=== PATIENT | female | born 1970 | race Caucasian/White ===

== ENCOUNTER 2016-11-14 07:44 | Day surgery (SDC) | payer OTHER ==
[~2016-11-14] VITALS: Ht 165.1 cm; Wt 63.7 kg
[2016-11-14] VITALS (17 sets, daily range): BP systolic 95–142; BP diastolic 46–96; PULSE 60–111; TEMP 36.5–36.7; O2SAT 95–100; Ht 165.1 cm; Wt 63.7 kg
[~2016-11-14 07:44] MED LIST: ALBUAER INH; BENZ1CAP90 PO; ESCI1TAB10 PO; ESTCR; LORA-741 PO; NAPR250T3 PO; PANT1INJ2; PSEU60TA80 PO; RANITAB6 PO; RBTDACL; SALM50AE2 INH; TIOTCAP INH
[2016-11-14] MEDS ORDERED: LEVALBUTEROL 1.25MG/3ML NEB INH ONE ×2 (07:45→11:45)
[2016-11-14] MEDS ORDERED: LIDOCAINE 4% INH SOLN 4 ML BTL ONE (07:45)
[2016-11-14] MEDS ORDERED: MIDAZOLAM HCL 5 MG/ML 1 ML VIAL IV ONE (07:45)
[2016-11-14] MEDS ORDERED: FENTANYL CITRATE INJ 50 MCG/1 ML 2 ML VIAL IV ONE (07:45)
[2016-11-14] MEDS ORDERED: LIDOCAINE HCL 2% LOCAL 50ML VIAL INFIL ONE (07:45)
[2016-11-14] MEDS ORDERED: PANT40TA PO (08:17)
[2016-11-14] MEDS ORDERED: PROP10TA7 PO (08:18)
[2016-11-14] MEDS ORDERED: ACET-1256 PO (08:18)
[2016-11-14] MEDS ORDERED: IBUP-1427 PO (08:18)
[2016-11-14] MEDS ORDERED: FLUT0.15 INH (08:19)
--- NOTE | 2016-11-14 09:22 | History & Physical Bridge Note ---
H&P Re-Evaluation Bridge Note: I have examined the patient, reviewed the History & Physical and in the interval since the performance of the History & Physical I have noted the following changes of clinical significance: No changes noted
--- NOTE | 2016-11-14 09:23 | Procedure Note ---
Pre-Mod Sedation Assessment General Date of Moderate Sedation: November 14, 2016. Vital Signs: Vital Signs Past 12 Hours Date Time Temp Pulse Resp B/P Pulse Ox O2 Delivery O2 Flow Rate FiO2 11/14/16 08:29 36.7 64 18 118/48 99 Room Air 11/14/16 08:12 36.7 64 18 118/48 99 Room Air Pre-Sedation Airway Assessment Oral Cavity: WNL Short Thick Neck: No Hx of Sleep Apnea: No Smoking Status: Current Every Day Smoker Mallampati Classification: Class I ASA Classification: Class I Procedure Planning Contraindications-for Mod Sed: None Yes Notes The planned sedation has been discussed with the patient and consent obtained. I have identified the patient, determined the appropriateness of sedation and have assessed the patient immediately prior to the procedure. All medicine(s) and interventions are by my order.
[2016-11-14] MEDS ORDERED: NURSING VERBAL MED ORDER ONE ×3 (10:45→11:45)
--- NOTE | 2016-11-14 11:44 | OPERATIVE REPORT ---
DATE OF OPERATION: 11/14/2016 PROCEDURE: Fiberoptic bronchoscopy with bronchoalveolar lavage. INDICATIONS: Chronic cough refractory to aggressive outpatient therapy. ANESTHESIA PREOPERATIVELY: None. ANESTHESIA DURING PROCEDURE: 50 mcg IV fentanyl, 5 mg IV Versed, 20 mL 2% Xylocaine spray above and below the cords, 4% viscous Xylocaine intranasally. PROCEDURE: Fiberoptic bronchoscope was inserted into the left naris with minimal difficulty and passed to the level of the true vocal cords. The cords appeared to approximate normally with phonation without evidence for lesions or paralysis. The area was anesthetized with 2% Xylocaine spray and the scope was then introduced in the trachea and right and left tracheobronchial tree. The ramirez was sharp. The right main stem bronchus was explored and no endobronchial lesion was seen. A moderate amount of mucoviscous secretion was lavaged from the right mainstem bronchus and all lobar segments until clear. The right upper lobe, the apical posterior and anterior segments, bronchus intermedius, right middle lobe and the medial and lateral segments and all basilar segments of right lower lobe were found to be free of endobronchial lesions. Each lobar segment was copiously lavaged with normosol and the aspirate sent for appropriate studies. Changes of chronic bronchitis were noted with bronchial crypts and clefts seen throughout the right tracheobronchial tree. Left tracheobronchial tree was explored and no endobronchial lesion was seen. Left upper lobe, the apical-posterior and anterior segments, lingular subdivision, left lower lobe and all respective basilar segments were found to be free of endobronchial lesions. Each lobar segment was copiously lavaged with normosol and the aspirate sent for appropriate studies. No brushings or biopsies were deemed necessary. The scope was withdrawn and the patient did experience some coughing paroxysms and was given a nebulizer treatment with Xopenex 1.25 mg then transferred to the medical treatment unit hemodynamically stable with no signs of respiratory compromise. Will await microbiological and cytologic examination of the bronchial washings. I attest to the content of the Intraoperative Record and any orders documented therein. Any exceptio ns are noted below.
--- NOTE | 2016-11-14 13:10 | Discharge Instructions ---
Discharge Instructions Date of Service November 14, 2016. Admission Reason for Admission: Copd; Cough; Pulmonary Nodule Discharge Discharge Diagnosis / Problem: Cough Discharge Goals Goal(s): Diagnostic testing, Therapeutic intervention Activity Recommendations Activity Limitations: per Instructions/Follow-up section Lifting Limitations: none Exercise/Sports Limitations: rest today, gradually increase as tolerated Shower/Bathe: no limitations . Current Hospital Diet Patient's current hospital diet: Discharge Diet Recommended Diet: Regular Diet Pending Studies Studies pending at discharge: yes List of pending studies: Cultures and cytology - will be reviewed on follow-up appointment Medical Emergencies . Who to Call and When: Medical Emergencies: If at any time you feel your situation is an emergency, please call 911 immediately. . Non-Emergent Contact Non-Emergency issues call your: Primary Care Provider, Hatchery Attendant Call Non-Emergent contact if: you have a fever, you have any medication questions . . "Provider Documentation" section prepared by Evy Viveros. . VTE Core Measure Inpt VTE Proph given/why not?: Contraindicated
[2016-11-20 12:23] LABS: HERPES SIMPLEX CULT SOURCE OTHER-R&L TRACH TREE; HERPES SIMPLEX VIRUS CULT NOT ISOLATED (NOT ISOLATED)
== END 2016-11-14 13:32 | disposition home or self-care (01) ==
LOC: C.ACU 07:44
PROVIDERS: ATTEND Internal Medicine Pulmonary Disease
DX: J44.9 Chronic obstructive pulmonary disease, unspecified (principal); Z72.0 Tobacco use; Z79.899 Other long term (current) drug therapy

== ENCOUNTER 2021-01-15 15:59 | Observation (INO) ==
[2021-01-15] MEDS ORDERED: ALBUT/IPRATROP 3MG/0.5MG NEB 3 ML VIAL INH STA (19:44)
[2021-01-15] MEDS ORDERED: methylPREDNISolone 125 MG/2 ML VIAL IV STA (19:44)
--- NOTE | 2021-01-15 19:57 | XRay Report ---
XR chest 1V portable HISTORY: 50 years-old Female Dyspnea acute shortness of breath COMPARISON: Chest radiograph 7 09/14/2020, chest CT 05/25/2020 TECHNIQUE: Portable AP view of the chest FINDINGS: Cardiac mediastinal and hilar silhouettes are within normal limits. No pneumothorax, pleural effusion , airspace consolidation or overt pulmonary edema. Spinal stimulator leads overlying the mid-thoracic spine. Bones of the chest appear grossly intact. IMPRESSION: No acute process. ACT 112: Negative or not required by law. The above report was generated using voice recognition software. It may contain grammatical, syntax o r spelling errors. Electronically signed by: Mauro Farmer M.D. 01/15/2021 7:56 PM
[2021-01-15 20:08] LABS: Basophils # (auto) 0.02 K/uL (0-0.2); Basophils % (auto) 0.3 %; Eosinophils % (auto) 2.6 %; Hematocrit (blood only) 41.4 % (37-47); Hemoglobin 14.1 g/dL (12.0-16.0); Immature Granulocytes # (auto) 0.01 K/uL (0.00-0.02); Immature Granulocytes % (auto) 0.1 %; Lymphocytes % (auto) 43.6 %; Mean Corpuscular Hemoglobin 32.1 pg (25-34); Mean Corpuscular Hgb Conc 34.1 g/dL (32-36); Mean Corpuscular Volume 94.3 fL (80-100); Mean Platelet Volume 9.7 fL (7.4-10.4); Monocytes # (auto) 0.52 K/uL (0.11-0.59); Monocytes % (auto) 6.7 %; Neutrophils # (auto) 3.64 K/uL (1.4-6.5); Neutrophils % (auto) 46.7 %; Platelet Count 307 K/uL (130-400); RDW Coefficient of Variation 13.3 % (11.5-14.5); RDW Standard Deviation 46.2 fL (36.4-46.3); Red Blood Count 4.39 M/uL (4.2-5.4); White Blood Count 7.79 K/uL (4.8-10.8)
--- NOTE | 2021-01-15 20:12 | Emergency Department Note ---
Impression & Plan Acute exacerbation of chronic obstructive pulmonary disease (COPD), Acute bronchitis ED Provider Note NAME: VITALY BREWER AGE: 50 SEX: F : 1970 ARRIVES VIA: Walk-In INFORMANT: Patient, ED PROVIDER(S): Sebastian Trejo DO CHIEF COMPLAINT: Shortness of breath HPI: The patient is a 50-year-old female who presented to the emergency department at the request of her primary tip bander for an evaluation of difficulty breathing as well as possible admission. The patient's been noticing cough and difficulty breathing. She was seen at an urgent care center as well as [place] emergency department. She was placed on antibiotics twice and is on her second round of antibiotics. She was also started on steroids. She was seen by her pulmonary physician today and was sent to the emergency department because of ongoing symptoms as well as possible admission. The patient states she has been using her nebulizer machine and last used it this morning. She has been tested for COVID-19 and it was negative. She denies having any lower extremity swelling or chest pain. She denies having any abdominal pain nausea or vomiting. The patient does continue to use tobacco products. ROS: See above HPI for pertinent positives & negatives. A total of 10 systems reviewed and were otherwise negative. PAST MEDICAL HISTORY: See Below PAST SURGICAL HISTORY: See Below FAMILY HISTORY: See Below SOCIAL HISTORY: See Below HOME MEDICATIONS: See Below ALLERGIES: See Below VITALS: See Below PHYSICAL EXAMINATION: GENERAL: Patient is awake alert in no acute distress patient is resting comfortably and showing no signs of anxiety EYES: The conjunctivae are clear. The pupils are round and reactive. EARS, NOSE, MOUTH AND THROAT: The nose is without any evidence of any deformity. NECK: The neck is nontender and supple. RESPIRATORY: Diminished breath sounds are noted throughout. There is no convers ational dyspnea or tachypnea. CARDIOVASCULAR: Regular rate and rhythm noted there no murmurs rubs or gallops normal S1 normal S2. GASTROINTESTINAL: The abdomen is soft. Abdomen is nontender. MUSCULOSKELETAL/EXTREMITIES: There is no evidence of gross deformity full range of motion is noted in the hips and shoulders. SKIN: There is no obvious evidence of any rash. There is no calf tenderness. NEUROLOGIC: Patient is awake alert and oriented x3. MEDICAL DECISION MAKING: The patient is a 50-year-old female who presented to the emergency department for an evaluation of difficulty breathing. The patient does have a history of COPD but she has been treated with 2 outpatient rounds of antibiotic and steroid. She was having worsening symptoms throughout the day. She called her primary care physician who got in contact with her primary pulmonology group. She was advised to come the emergency department for further evaluation. The patient was not hypoxic or tachycardic but given her ongoing symptoms CT of the chest was obtained to rule out venous pulmonary thromboembolic disease. The patient did not have a fever. She was treated with DuoNeb therapy as well as IV steroids. She was also given IV antibiotics. I discussed her condition with her primary tip bander on-call. At this time given her symptoms and her failure of outpatient therapy he does recommend we discussed the case with the hospitalist group for possible inpatient management and further evaluation. The [facility] hospitalist was notified about the patient. Triage Nursing notes reviewed. Prior medical records reviewed Vital Signs: reviewed and remarkable for no significant abnormalities Differential diagnosis: Reactive airway disease, pneumonia, pneumothorax, COPD, CHF, infections, cardiac ischemia, pulmonary embolism, musculoskeletal, gastrointestinal, as well as other pathologies. ER treatment provided: See below Diagnostics interpreted by me: ECG: EKG was obtained in the emergency department. My interpretation is normal sinus rhythm at 73 bpm. There is no ectopy. There was no acute ST segment abnormalities noted. Cardiac Monitoring: An order was placed for continuous cardiac monitoring. The monitor shows a rate of 78 bpm with sinus rhythm. Laboratory studies: As stated above and show below. Imaging studies: See below Consultation(s): 2170: I discussed this case with Dr. Logan who is on-call for pulmonology. He is concerned the patient has failed outpatient therapy twice now and recommends observation for inpatient management. He does recommend Zithromax. Dr. Whiteside was notified about the patient. He will evaluate the patient in the emergency department. Past Med/Surg History Medical History Cat scratch fever COPD (chronic obstructive pulmonary disease) Esophagitis GERD (gastroesophageal reflux disease) Lung nodule Surgical History History of cholecystectomy History of endometrial ablation History of lumbar fusion L5-S1 History of tubal ligation Social History Smoking Status: Current every day smoker Tobacco Type: Cigarettes Second Hand Exposure: No; Hx Alcohol Use: No Hx Substance Use: No Preferred Language: Tajik Communication Ability: Effective Sand Conditioner Machine Required: No Beliefs That Will Affect Care: None Current Living Situation: Family Feels Safe at Home: Yes Assistive Devices: Glasses Allergies Allergies Allergy/AdvReac Type Severity Reaction Status Date / Time Bactrim Allergy Mild RASH Verified 11/14/16 08:14 moxifloxacin [From Avelox] Allergy Mild Rash Verified 01/10/21 10:58 sulfamethoxazole Allergy Mild RASH Verified 01/10/21 10:58 trimethoprim Allergy Mild RASH Verified 01/10/21 10:58 doxycycline AdvReac nushea and Verified 01/10/21 10:58 vomiting Home Meds Home Medications Medication Instructions Recorded Confirmed clonazepam 0.5 mg tablet (Klonopin) 0.5 mg PO TID PRN 04/30/18 01/10/21 escitalopram oxalate 20 mg tablet 20 mg PO DAILY 04/30/18 01/10/21 (Lexapro) estradiol (Estrace) 2 g VAGINAL WK 04/30/18 01/10/21 ibuprofen 600 mg tablet 600 mg PO QID PRN 04/30/18 01/15/21 propranolol 10 mg tablet 10 mg PO DAILY 04/30/18 01/10/21 albuterol sulfate 90 mcg/actuation 2 puffs INHALATION Q4H PRN #1 gm 01/25/19 01/10/21 aerosol inhaler ondansetron HCl 4 mg tablet 4 mg PO Q8H PRN tab 01/25/19 01/15/21 aspirin 81 mg tablet,delayed 81 mg PO DAILY 11/22/19 01/10/21 release (Adult Aspirin Regimen) calcium carbonate 200 mg calcium 200 mg PO BID 11/22/19 01/10/21 (500 mg) chewable tablet cyanocobalamin (vitamin B-12) 1,000 mcg IM MONTHLY ml 04/25/20 01/10/21 1,000 mcg/mL injection solution budesonide 0.5 mg/2 mL suspension 0.5 mg INHALATION DAILY 10/03/20 01/10/21 for nebulization (Pulmicort) dexlansoprazole 60 mg 60 mg PO DAILY 10/03/20 01/10/21 capsule,biphase delayed release (Dexilant) simvastatin 10 mg tablet (Zocor) 10 mg PO DAILY 10/03/20 01/10/21 doxycycline hyclate 100 mg capsule 100 mg PO Q12 01/15/21 01/15/21 levalbuterol HCl 1.25 mg/3 mL 1.25 mg INH Q4H PRN 01/15/21 01/15/21 solution for nebulization (Xopenex) prednisone 10 mg tablet 10 mg PO UD 01/15/21 01/15/21 Previous Rx's Medication Instructions Recorded fluticasone propionate 50 1 spray INTRANASAL DAILY #18.2 ml 09/20/19 mcg/actuation nasal spray,suspension (Flonase Allergy Relief) benzonatate 100 mg capsule 100 mg PO BID PRN #60 cap 10/18/19 (Tessalon Perltasneem) mometasone-formoterol HFA 200 1 puffs INHALATION BID #13 gm 01/07/20 mcg-5 mcg/actuation aerosol inhaler chlorpheniramine maleate 4 mg 4 mg PO Q12H PRN #60 tab 05/23/20 tablet (Allergy (chlorpheniramine)) pseudoephedrine HCl 120 mg 120 mg PO Q12H #60 tab 05/23/20 tablet,extended release sodium chloride 7 % for 4 ml INHALATION BID #240 ml 10/03/20 nebulization amoxicillin 875 mg-potassium 1 tab PO BID #20 tab 01/09/21 clavulanate 125 mg tablet (Augmentin) fluconazole 100 mg tablet 100 mg PO DAILY #10 tab 01/09/21 (Diflucan) ipratropium bromide 0.02 % 2.5 ml INH Q4H PRN #150 ml 01/10/21 solution for inhalation Results & Data (ED) Vital Signs Vital Signs - 24 hr 01/15/21 16:35 01/15/21 19:38 01/15/21 20:00 Temperature 36.6 C Temperature Source Temporal Artery Scan Pulse Rate 84 89 73 Pulse Rate [Right Radial] Pulse Rate from SpO2 Sensor 83 78 Pulse Rhythm Regular Pulse Strength Normal Respiratory Rate 20 21 20 Respiratory Effort / Characteristics Non-Labored Spontaneous Respiratory Depth Normal Respiratory Pattern Regular Blood Pressure 125/77 116/86 Blood Pressure Mean 93 96 107 Pulse Oximetry 98 97 96 Oxygen Delivery Method Room Air Room Air Room Air Sepsis Recent Fever Within 48 Hours No Sepsis New/Unexplained Change in Mental Status No Sepsis Action Taken by Nursing No Action Required 01/15/21 20:09 01/15/21 20:27 01/15/21 20:30 Temperature Temperature Source Pulse Rate 75 Pulse Rate [Right Radial] 82 Pulse Rate from SpO2 Sensor 75 Pulse Rhythm Pulse Strength Respiratory Rate 18 14 Respiratory Effort / Characteristics Non-Labored Spontaneous Respiratory Depth Respiratory Pattern Blood Pressure 119/64 Blood Pressure Mean 82 Pulse Oximetry 98 94 97 Oxygen Delivery Method Room Air Room Air Room Air Sepsis Recent Fever Within 48 Hours Sepsis New/Unexplained Change in Mental Status Sepsis Action Taken by Nursing 01/15/21 21:00 01/15/21 22:00 01/15/21 22:30 Temperature Temperature Source Pulse Rate 74 73 76 Pulse Rate [Right Radial] Pulse Rate from SpO2 Sensor 74 75 77 Pulse Rhythm Pulse Strength Respiratory Rate 22 23 22 Respiratory Effort / Characteristics Respiratory Depth Respiratory Pattern Blood Pressure 131/80 118/71 Blood Pressure Mean 97 86 Pulse Oximetry 96 96 95 Oxygen Delivery Method Room Air Sepsis Recent Fever Within 48 Hours Sepsis New/Unexplained Change in Mental Status Sepsis Action Taken by [facility] Medications Current Medication List: was personally reviewed by me Laboratory Data Attestation: I reviewed the patient's lab results. Result diagrams: 01/15/21 19:50 01/15/21 19:50 Lab Results 01/15/21 01/15/21 01/15/21 Range/Units 19:50 19:50 20:27 WBC 7.79 (4.8-10.8) K/uL RBC 4.39 (4.2-5.4) M/uL Hgb 14.1 (12.0-16.0) g/dL Hct 41.4 (37-47) % MCV 94.3 (80-100) fL MCH 32.1 (25-34) pg MCHC 34.1 (32-36) g/dL RDW Std Deviation 46.2 (36.4-46.3) fL RDW Coeff of Shanika 13.3 (11.5-14.5) % Plt Count 307 (130-400) K/uL MPV 9.7 (7.4-10.4) fL Immature Gran % (Auto) 0.1 % Neut % (Auto) 46.7 % Lymph % (Auto) 43.6 % [place] % (Auto) 6.7 % Eos % (Auto) 2.6 % Baso % (Auto) 0.3 % Neut # (Auto) 3.64 (1.4-6.5) K/uL Lymph # (Auto) 3.40 (1.2-3.4) K/uL [place] # (Auto) 0.52 (0.11-0.59) K/uL Eos # (Auto) 0.20 (0-0.5) K/uL Baso # (Auto) 0.02 (0-0.2) K/uL Immature Gran # (Auto) 0.01 (0.00-0.02) K/uL VBG pH 7.43 H (7.36-7.41) VBG pCO2 44 (38-50) mmHg VBG pO2 29 mmHg VBG HCO3 29 mmol/L VBG O2 Saturation < 60.0 % VBG Base Excess 4.0 mEq/L Barometric Pressure 731.1 mm/Hg Sodium 139 (136-145) mmol/L Potassium 4.2 (3.5-5.1) mmol/L Chloride 106 (98-107) mmol/L Carbon Dioxide 28 (21-32) mmol/L Anion Gap 5.0 (3-11) BUN 9 (7-18) mg/dl Creatinine 0.77 (0.6-1.2) mg/dl Est Cr Clr Drug Dosing 76.9 ml/min Est GFR ( Amer) 102.9 ml/min Est GFR (Non-Af Amer) 88.8 ml/min BUN/Creatinine Ratio 12.0 (10-20) Glucose 86 (70-99) mg/dl Calcium 8.8 (8.5-10.1) mg/dl Magnesium 2.3 (1.8-2.4) mg/dl Total Bilirubin 0.3 (0.2-1) mg/dl AST 19 (15-37) U/L ALT 20 (12-78) U/L Alkaline Phosphatase 78 (45-117) U/L Troponin I < 0.015 (0-0.045) ng/ml Total Protein 7.6 (6.4-8.2) gm/dl Albumin 3.9 (3.4-5.0) gm/dl Globulin 3.7 (2.5-4.0) gm/dl Albumin/Globulin Ratio 1.1 (0.9-2) Specimen Hemolysis Urine Color Urine Appearance (Clear) Urine pH (4.5-7.5) Ur Specific [place] (1.000-1.030) Urine Protein (Negative) Urine Glucose (UA) (Negative) Urine Ketones (Negative) Urine Blood (Negative) Urine Nitrite (Negative) Urine Bilirubin (Negative) Urine Urobilinogen (Negative) Ur Leukocyte Esterase (Negative) 01/15/21 Range/Units 21:48 WBC (4.8-10.8) K/uL RBC (4.2-5.4) M/uL Hgb (12.0-16.0) g/dL Hct (37-47) % MCV (80-100) fL MCH (25-34) pg MCHC (32-36) g/dL RDW Std Deviation (36.4-46.3) fL RDW Coeff of Shanika (11.5-14.5) % Plt Count (130-400) K/uL MPV (7.4-10.4) fL Immature Gran % (Auto) % Neut % (Auto) % Lymph % (Auto) % [place] % (Auto) % Eos % (Auto) % Baso % (Auto) % Neut # (Auto) (1.4-6.5) K/uL Lymph # (Auto) (1.2-3.4) K/uL [place] # (Auto) (0.11-0.59) K/uL Eos # (Auto) (0-0.5) K/uL Baso # (Auto) (0-0.2) K/uL Immature Gran # (Auto) (0.00-0.02) K/uL VBG pH (7.36-7.41) VBG pCO2 (38-50) mmHg VBG pO2 mmHg VBG HCO3 mmol/L VBG O2 Saturation % VBG Base Excess mEq/L Barometric Pressure mm/Hg Sodium (136-145) mmol/L Potassium (3.5-5.1) mmol/L Chloride (98-107) mmol/L Carbon Dioxide (21-32) mmol/L Anion Gap (3-11) BUN (7-18) mg/dl Creatinine (0.6-1.2) mg/dl Est Cr Clr Drug Dosing ml/min Est GFR ( Amer) ml/min Est GFR (Non-Af Amer) ml/min BUN/Creatinine Ratio (10-20) Glucose (70-99) mg/dl Calcium (8.5-10.1) mg/dl Magnesium (1.8-2.4) mg/dl Total Bilirubin (0.2-1) mg/dl AST (15-37) U/L ALT (12-78) U/L Alkaline Phosphatase (45-117) U/L Troponin I (0-0.045) ng/ml Total Protein (6.4-8.2) gm/dl Albumin (3.4-5.0) gm/dl Globulin (2.5-4.0) gm/dl Albumin/Globulin Ratio (0.9-2) Specimen Hemolysis Urine Color Yellow Urine Appearance Clear (Clear) Urine pH 7.0 (4.5-7.5) Ur Specific [place] 1.022 (1.000-1.030) Urine Protein Negative (Negative) Urine Glucose (UA) Negative (Negative) Urine Ketones Negative (Negative) Urine Blood Negative (Negative) Urine Nitrite Negative (Negative) Urine Bilirubin Negative (Negative) Urine Urobilinogen Negative (Negative) Ur Leukocyte Esterase Negative (Negative) Administered Medications Discontinued Medications Albuterol (Albut/Ipratrop 3mg/0.5mg Neb 3 Ml Vial) 3 ml INH NOW STA Stop: 01/15/21 19:45 Last Admin: 01/15/21 20:09 Dose: 3 ml Documented by: [id number] Ioversol (Optiray 320 125ml) 121 ml IV ONCE ONE Stop: 01/15/21 21:24 Last Admin: 01/15/21 21:24 Dose: 121 ml Documented by: [id number] Methylprednisolone (Methylprednisolone 125 Mg/2 Ml Vial) 125 mg IV NOW STA Stop: 01/15/21 19:45 Last Admin: 01/15/21 20:13 Dose: 125 mg Documented by: [id number] Imaging Data Radiologist's Impression: Chest X-Ray 01/15/21 19:45 XR chest 1V portable HISTORY: 50 years-old Female Dyspnea acute shortness of breath COMPARISON: Chest radiograph 7 09/14/2020, chest CT 05/25/2020 TECHNIQUE: Portable AP view of the chest FINDINGS: Cardiac mediastinal and hilar silhouettes are within normal limits. No pneumothorax, pleural effusion, airspace consolidation or overt pulmonary edema. Spinal stimulator leads overlying the mid-thoracic spine. Bones of the chest appear grossly intact. IMPRESSION: No acute process. ACT 112: Negative or not required by law. The above report was generated using voice recognition software. It may contain grammatical, syntax or spelling errors. Electronically signed by: Mauro Farmer M.D. 01/15/2021 7:56 PM [facility] Patient: VITALY BREWER (Female) : 66 Status: ER Date: 01/15/21 21:34 Room #: History: SOB CP Slices: 720 Priors: Tech: Bob Rhodes @ [phone] Exams: CTA CHEST Contrast: IV Amt: 121 Accession Numbers: [id number] Referring Physician: EVE PÉREZ Preliminary Findings Only See Final Report For Complete Findings CTA CHEST: Minimal atelectasis. No infiltrate, effusion or pneumothorax. Thickening of some of the lower lobe bronchi. Partial occlusion of some of the lower lobe bronchi. Aorta unremarkable. Minimal atherosclerosis. No PE. Small hiatal hernia. No acute findings of the bones. Impression: No PE. Bronchitis suspected. Radiologist: Mello Raygoza M.D. Study ready at 21:40 and initial results transmitted at 23:08 Discharge Plan Visit Data Chief Complaint: Illness Stated Complaint: COUGH, WHEEZING, FATIGUE, SINUSES, REFERRED BY DOC ED Provider: Sebastian Trejo Discharge Problem: Acute exacerbation of chronic obstructive pulmonary disease (COPD), Acute bronchitis Patient Disposition: Being Evaluated by Hospitalist Condition: Good Forms Stand Alone Forms: My [facility] Prescriptions Prescriptions: No Action pseudoephedrine HCl 120 mg tablet extended release 120 mg PO Q12H Qty: 60 RF: 0 chlorpheniramine maleate [Allergy (chlorpheniramine)] 4 mg tablet 4 mg PO Q12H PRN (Reason: runny nose) Qty: 60 RF: 0 amoxicillin-pot clavulanate [Augmentin] 875-125 mg tablet 1 tab PO BID Qty: 20 RF: 0 fluconazole [Diflucan] 100 mg tablet 100 mg PO DAILY Qty: 10 RF: 0 aspirin [Adult Aspirin Regimen] 81 mg tablet,delayed release (DR/EC) 81 mg PO DAILY RF: 0 calcium carbonate 200 mg calcium (500 mg) tablet,chewable 200 mg PO BID RF: 0 benzonatate [Tessalon Perles] 100 mg capsule 100 mg PO BID PRN (Reason: Cough) Qty: 60 RF: 2 fluticasone propionate [Flonase Allergy Relief] 50 mcg/actuation spray,suspension 1 spray INTRANASAL DAILY Qty: 18.2 RF: 5 cyanocobalamin (vitamin B-12) 1,000 mcg/mL solution 1,000 mcg IM MONTHLY RF: 0 ipratropium bromide 0.02 % solution 2.5 ml INH Q4H PRN (Reason: shortness of breath or wheezing) Qty: 150 RF: 5 mometasone-formoterol 200-5 mcg/actuation HFA aerosol inhaler 1 puffs inhalation BID Qty: 13 RF: 5 albuterol sulfate 90 mcg/actuation HFA aerosol inhaler 2 puffs inhalation Q4H PRN (Reason: shortness of breath) Qty: 1 RF: 0 ondansetron HCl 4 mg tablet 4 mg PO Q8H PRN (Reason: nausea and vomiting) RF: 0 Dexilant 60 mg capsule,biphase delayed releas 60 mg PO DAILY RF: 0 simvastatin [Zocor] 10 mg tablet 10 mg PO DAILY RF: 0 budesonide [Pulmicort] 0.5 mg/2 mL suspension for nebulization 0.5 mg inhalation DAILY RF: 0 sodium chloride 7 % solution for nebulization 4 ml inhalation BID Qty: 240 RF: 5 clonazepam [Klonopin] 0.5 mg Tablet 0.5 mg PO TID PRN (Reason: Anxiety) RF: 0 propranolol 10 mg Tablet 10 mg PO DAILY RF: 0 ibuprofen 600 mg Tablet 600 mg PO QID PRN (Reason: Pain) RF: 0 estradiol [Estrace] 0.01 % (0.1 mg/gram) Cream 2 g VAGINAL WK RF: 0 escitalopram oxalate [Lexapro] 20 mg Tablet 20 mg PO DAILY RF: 0 prednisone 10 mg tablet 10 mg PO UD RF: 0 doxycycline hyclate 100 mg capsule 100 mg PO Q12 RF: 0 levalbuterol HCl [Xopenex] 1.25 mg/3 mL solution for nebulization 1.25 mg INH Q4H PRN (Reason: Shortness Of Breath) RF: 0 Referrals Referrals: Eve Pérez MD [Primary Care Provider] -
[2021-01-15 20:40] LABS: Alanine Aminotransferase 20 U/L (12-78); Albumin Globulin Ratio 1.1 (0.9-2); Albumin Level 3.9 gm/dl (3.4-5.0); Alkaline Phosphatase 78 U/L (45-117); Aspartate Aminotransferase 19 U/L (15-37); Bilirubin,Total 0.3 mg/dl (0.2-1); Blood Urea Nitrogen 9 mg/dl (7-18); Calcium 8.8 mg/dl (8.5-10.1); Carbon Dioxide 28 mmol/L (21-32); Chloride 106 mmol/L (98-107); Creatinine Clr Calc Pharmacy 76.9 ml/min; Est GFR (African American) 102.9 ml/min; Est GFR (Non-African American) 88.8 ml/min; Globulin 3.7 gm/dl (2.5-4.0); Glucose 86 mg/dl (70-99); Magnesium 2.3 mg/dl (1.8-2.4); Potassium 4.2 mmol/L (3.5-5.1); Sodium 139 mmol/L (136-145); Total Protein 7.6 gm/dl (6.4-8.2); Troponin I < 0.015 ng/ml (0-0.045)
[2021-01-15 21:01] LABS: HCO3 VBG 29 mmol/L; PCO2 VBG 44 mmHg (38-50); PO2 VBG 29 mmHg; pH VBG 7.43 (7.36-7.41)
[2021-01-15 21:12] LABS: Oxygen Saturation VBG < 60.0 %
[2021-01-15] MEDS ORDERED: OPTIRAY 320 125ml IV ONE (21:23)
[2021-01-15 22:31] LABS: Appearance Urine Clear (Clear); Bilirubin Urine Negative (Negative); Blood Urine Negative (Negative); Color Urine Yellow; Glucose Urine UA Negative (Negative); Ketones Urine Negative (Negative); Leukocyte Esterase Urine Negative (Negative); Nitrite Urine Negative (Negative); Protein Urine Negative (Negative); Specific Gravity Urine 1.022 (1.000-1.030); Urobilinogen Urine Negative (Negative)
[2021-01-15] MEDS ORDERED: AZITHROMYCIN 500 MG in DEXTROSE 5% 250 ML IV STA (23:14)
[2021-01-15] MEDS ORDERED: FAMOTIDINE 20MG/5ML IV PUSH IV STA (23:59)
--- NOTE | 2021-01-16 00:01 | History & Physical Report ---
Date of Service January 15, 2021 Assessment & Plan (1) Acute exacerbation of chronic obstructive pulmonary disease (COPD): Plan: Myesha Jacobs is a 50-year-old female with past medical history significant for COPD, GERD, tobacco use; who presented to the ED earlier today at the recommendation of her primary pulmonology provider (Facundo Murrieta) for continued difficulty breathing. COPD exacerbation: -No baseline oxygen requirement, no oxygen requirement on admission -CTA chest demonstrating minimal atelectasis, no PE small hiatal hernia. Signs of bronchitis -CXR demonstrating no acute process -Stop Augmentin, and doxycycline -Received 125 Solu-Medrol in ED, continue with gradual steroid taper -Start azithromycin -Continue inhaler regimen, with nebs as needed Tobacco use disorder: -Patient continues to smoke 0.5-1 PPD -He is interested in quitting smoking, but is uncertain how. Does not desire to try to utilize medications to curb smoking habit GERD: -With the extent of steroid history patient has for her COPD exacerbations, can utilize Pepcid daily for protection Diet: Regular diet CODE STATUS: DNR/DNI (2) GERD (gastroesophageal reflux disease): History of Present Illness Primary Care Provider: Gabriela Pérez MD Myesha Jacobs is a 50-year-old female with past medical history significant for COPD, GERD, tobacco use; who presented to the ED earlier today at the recommendation of her primary pulmonology provider (Facundo Murrieta) for continued difficulty breathing. She has been struggling with this difficulty/shortness of breath for the last 2+ weeks, and over this time has had no noted improvement. Had been trialed on oral prednisone, with utilization of doxycycline, and Augmentin over this time. Had no continued improvement in her symptoms on any of these regimens, ultimately leading to presentation to ED. She continues to smoke, has been trying to quit smoking but only ever been successful at getting to 0.5 Packs per day, has not explored other alternative regimens to stopping smoking other than cold turkey and nicotine patches. During evaluation in ED, patient was sent to CT scanner for CT chest PE protocol. Following administration of contrast for the CT patient was laid flat, and ultimately had a syncopal episode. Mikey reyes was called at that time, and patient slowly returned back to normal over the matter of minutes. After this time, she was transitioned back to the emergency department room, before being admitted. Allergies Allergy/AdvReac Type Severity Reaction Status Date / Time moxifloxacin [From Avelox] Allergy Mild Rash Verified 01/10/21 10:58 sulfamethoxazole Allergy Mild RASH Verified 01/10/21 10:58 trimethoprim Allergy Mild RASH Verified 01/10/21 10:58 doxycycline AdvReac nushea and Verified 01/10/21 10:58 vomiting Home Medications Medication Instructions Recorded Confirmed Type clonazepam 0.5 mg tablet (Klonopin) 0.5 mg PO TID PRN 04/30/18 01/15/21 History escitalopram oxalate 20 mg tablet 20 mg PO DAILY 04/30/18 01/15/21 History (Lexapro) estradiol (Estrace) 2 g VAGINAL WK 04/30/18 01/15/21 History ibuprofen 600 mg tablet 600 mg PO QID PRN 04/30/18 01/15/21 History propranolol 10 mg tablet 10 mg PO DAILY 04/30/18 01/15/21 History albuterol sulfate 90 mcg/actuation 2 puffs INHALATION Q4H PRN #1 gm 01/25/19 01/15/21 History aerosol inhaler ondansetron HCl 4 mg tablet 4 mg PO Q8H PRN tab 01/25/19 01/15/21 History fluticasone propionate 50 1 spray INTRANASAL DAILY #18.2 ml 09/20/19 01/15/21 Rx mcg/actuation nasal spray,suspension (Flonase Allergy Relief) aspirin 81 mg tablet,delayed 81 mg PO DAILY 11/22/19 01/15/21 History release (Adult Aspirin Regimen) mometasone-formoterol HFA 200 1 puffs INHALATION BID #13 gm 01/07/20 01/15/21 Rx mcg-5 mcg/actuation aerosol inhaler cyanocobalamin (vitamin B-12) 1,000 mcg IM MONTHLY ml 04/25/20 01/15/21 History 1,000 mcg/mL injection solution budesonide 0.5 mg/2 mL suspension 0.5 mg INHALATION DAILY PRN 10/03/20 01/15/21 History for nebulization (Pulmicort) dexlansoprazole 60 mg 60 mg PO DAILY 10/03/20 01/15/21 History capsule,biphase delayed release (Dexilant) ipratropium bromide 0.02 % 2.5 ml INH Q4H PRN #150 ml 01/10/21 01/15/21 Rx solution for inhalation calcium carbonate 200 mg calcium 200 mg PO TID PRN 01/15/21 01/15/21 History (500 mg) chewable tablet levalbuterol HCl 1.25 mg/3 mL 1.25 mg INH Q4H PRN 01/15/21 01/15/21 History solution for nebulization (Xopenex) pseudoephedrine HCl 60 mg tablet 60 mg PO BID 01/15/21 01/15/21 History azithromycin 250 mg tablet 250 mg PO DAILY 6 Days #4 tab 01/16/21 Rx benzonatate 100 mg capsule 100 mg PO HS PRN #14 cap 01/16/21 Rx (Tessalon Perles) nicotine 21 mg/24 hr daily 21 mg TRANSDERMAL QAM #7 ea 01/16/21 Rx transdermal patch (Nicoderm CQ) prednisone 10 mg tablet 10 mg PO DAILY #30 tab 01/16/21 Rx Past Med/Surg History Medical History Cat scratch fever COPD (chronic obstructive pulmonary disease) Esophagitis GERD (gastroesophageal reflux disease) Lung nodule Surgical History History of cholecystectomy History of endometrial ablation History of lumbar fusion L5-S1 History of tubal ligation Social History Smoking Status: Current every day smoker Tobacco Type: Cigarettes Second Hand Exposure: No; Hx Alcohol Use: No Hx Substance Use: No Preferred Language: Togolese Communication Ability: Effective Grain Weigher Required: No Beliefs That Will Affect Care: None Current Living Situation: Spouse Feels Safe at Home: Yes Assistive Devices: None Review of Systems Review of Systems: All systems reviewed & are unremarkable except as noted in HPI & below Physical Exam Constitutional: WD/WN, vitals as above Eyes: PERRL, conjunctivae normal, anicteric sclerae Respiratory: normal respiratory effort and + prolonged expiratory phase; no respiratory distress, no labored breathing and does not use accessory muscles Auscultation: + wheezes; no crackles, no rales and no rhonchi Cardiovascular: Rate/Rhythm: regular rate and regular rhythm Heart Sounds: no gallop, no murmur and no cardiac rub Vessels: normal peripheral pulses; no JVD Extremities: no edema Gastrointestinal (Abdomen): Inspection/Auscultation: normal bowel sounds; abdomen not distended Percussion/Palpation: abdomen soft; abdomen nontender and no guarding Musculoskeletal: no cyanosis or clubbing, extremities motor strength 5/5 Skin: no rashes, warm and dry Neurologic: PERRL, EOMI, accommodation nl, no face palsy, no dysarthria CN's II-XI intact bilaterally and moves all extremities Psychiatric: Orientation: alert and oriented x 3 Results & Data Results & Data ([facility]) Vital Signs (Past 12 Hours) Vital Signs Temp Pulse Pulse Resp BP Pulse Ox 01/15/21 22:30 76 22 118/71 95 01/15/21 22:00 73 23 96 01/15/21 21:00 74 22 131/80 96 01/15/21 20:30 75 14 119/64 97 01/15/21 20:27 94 01/15/21 20:09 82 18 98 01/15/21 20:00 73 20 96 01/15/21 19:38 89 21 116/86 97 01/15/21 16:35 36.6 C 84 20 125/77 98 Laboratory Results 01/15/21 01/15/21 01/15/21 Range/Units 23:24 23:24 23:24 WBC (4.8-10.8) K/uL RBC (4.2-5.4) M/uL Hgb (12.0-16.0) g/dL Hct (37-47) % MCV (80-100) fL MCH (25-34) pg MCHC (32-36) g/dL RDW Std Deviation (36.4-46.3) fL RDW Coeff of Shanika (11.5-14.5) % Plt Count (130-400) K/uL MPV (7.4-10.4) fL Immature Gran % (Auto) % Neut % (Auto) % Lymph % (Auto) % [place] % (Auto) % Eos % (Auto) % Baso % (Auto) % Neut # (Auto) (1.4-6.5) K/uL Lymph # (Auto) (1.2-3.4) K/uL [place] # (Auto) (0.11-0.59) K/uL Eos # (Auto) (0-0.5) K/uL Baso # (Auto) (0-0.2) K/uL Immature Gran # (Auto) (0.00-0.02) K/uL VBG pH (7.36-7.41) VBG pCO2 (38-50) mmHg VBG pO2 mmHg VBG HCO3 mmol/L VBG O2 Saturation % VBG Base Excess mEq/L Barometric Pressure mm/Hg Sodium (136-145) mmol/L Potassium (3.5-5.1) mmol/L Chloride (98-107) mmol/L Carbon Dioxide (21-32) mmol/L Anion Gap (3-11) BUN (7-18) mg/dl Creatinine (0.6-1.2) mg/dl Est Cr Clr Drug Dosing ml/min Est GFR ( Amer) ml/min Est GFR (Non-Af Amer) ml/min BUN/Creatinine Ratio (10-20) Glucose (70-99) mg/dl Calcium (8.5-10.1) mg/dl Magnesium (1.8-2.4) mg/dl Total Bilirubin (0.2-1) mg/dl AST (15-37) U/L ALT (12-78) U/L Alkaline Phosphatase (45-117) U/L Troponin I (0-0.045) ng/ml Total Protein (6.4-8.2) gm/dl Albumin (3.4-5.0) gm/dl Globulin (2.5-4.0) gm/dl Albumin/Globulin Ratio (0.9-2) Specimen Hemolysis Urine Color Urine Appearance (Clear) Urine pH (4.5-7.5) Ur Specific [place] (1.000-1.030) Urine Protein (Negative) Urine Glucose (UA) (Negative) Urine Ketones (Negative) Urine Blood (Negative) Urine Nitrite (Negative) Urine Bilirubin (Negative) Urine Urobilinogen (Negative) Ur Leukocyte Esterase (Negative) COVID-19 Eval Order Covid19 at [facility] Cancelled SARS-CoV-2 (PCR) NEGATIVE (Negative) 01/15/21 01/15/21 01/15/21 Range/Units 21:48 20:27 19:50 WBC (4.8-10.8) K/uL RBC (4.2-5.4) M/uL Hgb (12.0-16.0) g/dL Hct (37-47) % MCV (80-100) fL MCH (25-34) pg MCHC (32-36) g/dL RDW Std Deviation (36.4-46.3) fL RDW Coeff of Shanika (11.5-14.5) % Plt Count (130-400) K/uL MPV (7.4-10.4) fL Immature Gran % (Auto) % Neut % (Auto) % Lymph % (Auto) % [place] % (Auto) % Eos % (Auto) % Baso % (Auto) % Neut # (Auto) (1.4-6.5) K/uL Lymph # (Auto) (1.2-3.4) K/uL [place] # (Auto) (0.11-0.59) K/uL Eos # (Auto) (0-0.5) K/uL Baso # (Auto) (0-0.2) K/uL Immature Gran # (Auto) (0.00-0.02) K/uL VBG pH 7.43 H (7.36-7.41) VBG pCO2 44 (38-50) mmHg VBG pO2 29 mmHg VBG HCO3 29 mmol/L VBG O2 Saturation < 60.0 % VBG Base Excess 4.0 mEq/L Barometric Pressure 731.1 mm/Hg Sodium 139 (136-145) mmol/L Potassium 4.2 (3.5-5.1) mmol/L Chloride 106 (98-107) mmol/L Carbon Dioxide 28 (21-32) mmol/L Anion Gap 5.0 (3-11) BUN 9 (7-18) mg/dl Creatinine 0.77 (0.6-1.2) mg/dl Est Cr Clr Drug Dosing 76.9 ml/min Est GFR ( Amer) 102.9 ml/min Est GFR (Non-Af Amer) 88.8 ml/min BUN/Creatinine Ratio 12.0 (10-20) Glucose 86 (70-99) mg/dl Calcium 8.8 (8.5-10.1) mg/dl Magnesium 2.3 (1.8-2.4) mg/dl Total Bilirubin 0.3 (0.2-1) mg/dl AST 19 (15-37) U/L ALT 20 (12-78) U/L Alkaline Phosphatase 78 (45-117) U/L Troponin I < 0.015 (0-0.045) ng/ml Total Protein 7.6 (6.4-8.2) gm/dl Albumin 3.9 (3.4-5.0) gm/dl Globulin 3.7 (2.5-4.0) gm/dl Albumin/Globulin Ratio 1.1 (0.9-2) Specimen Hemolysis Urine Color Yellow Urine Appearance Clear (Clear) Urine pH 7.0 (4.5-7.5) Ur Specific [place] 1.022 (1.000-1.030) Urine Protein Negative (Negative) Urine Glucose (UA) Negative (Negative) Urine Ketones Negative (Negative) Urine Blood Negative (Negative) Urine Nitrite Negative (Negative) Urine Bilirubin Negative (Negative) Urine Urobilinogen Negative (Negative) Ur Leukocyte Esterase Negative (Negative) COVID-19 Eval Order SARS-CoV-2 (PCR) (Negative) 01/15/21 Range/Units 19:50 WBC 7.79 (4.8-10.8) K/uL RBC 4.39 (4.2-5.4) M/uL Hgb 14.1 (12.0-16.0) g/dL Hct 41.4 (37-47) % MCV 94.3 (80-100) fL MCH 32.1 (25-34) pg MCHC 34.1 (32-36) g/dL RDW Std Deviation 46.2 (36.4-46.3) fL RDW Coeff of Shanika 13.3 (11.5-14.5) % Plt Count 307 (130-400) K/uL MPV 9.7 (7.4-10.4) fL Immature Gran % (Auto) 0.1 % Neut % (Auto) 46.7 % Lymph % (Auto) 43.6 % [place] % (Auto) 6.7 % Eos % (Auto) 2.6 % Baso % (Auto) 0.3 % Neut # (Auto) 3.64 (1.4-6.5) K/uL Lymph # (Auto) 3.40 (1.2-3.4) K/uL [place] # (Auto) 0.52 (0.11-0.59) K/uL Eos # (Auto) 0.20 (0-0.5) K/uL Baso # (Auto) 0.02 (0-0.2) K/uL Immature Gran # (Auto) 0.01 (0.00-0.02) K/uL VBG pH (7.36-7.41) VBG pCO2 (38-50) mmHg VBG pO2 mmHg VBG HCO3 mmol/L VBG O2 Saturation % VBG Base Excess mEq/L Barometric Pressure mm/Hg Sodium (136-145) mmol/L Potassium (3.5-5.1) mmol/L Chloride (98-107) mmol/L Carbon Dioxide (21-32) mmol/L Anion Gap (3-11) BUN (7-18) mg/dl Creatinine (0.6-1.2) mg/dl Est Cr Clr Drug Dosing ml/min Est GFR ( Amer) ml/min Est GFR (Non-Af Amer) ml/min BUN/Creatinine Ratio (10-20) Glucose (70-99) mg/dl Calcium (8.5-10.1) mg/dl Magnesium (1.8-2.4) mg/dl Total Bilirubin (0.2-1) mg/dl AST (15-37) U/L ALT (12-78) U/L Alkaline Phosphatase (45-117) U/L Troponin I (0-0.045) ng/ml Total Protein (6.4-8.2) gm/dl Albumin (3.4-5.0) gm/dl Globulin (2.5-4.0) gm/dl Albumin/Globulin Ratio (0.9-2) Specimen Hemolysis Urine Color Urine Appearance (Clear) Urine pH (4.5-7.5) Ur Specific [place] (1.000-1.030) Urine Protein (Negative) Urine Glucose (UA) (Negative) Urine Ketones (Negative) Urine Blood (Negative) Urine Nitrite (Negative) Urine Bilirubin (Negative) Urine Urobilinogen (Negative) Ur Leukocyte Esterase (Negative) COVID-19 Eval Order SARS-CoV-2 (PCR) (Negative) Supervising Physician Co-Signing Physician Notes Attending addendum: I have physically seen this patient, have supervised the medical residents activities, and agree with the H&P unless as otherwise noted. Assessment and Plan: COPD exacerbation- Given Solu-Medrol 125 mg IV in ED. Continue Solu-Medrol 40 mg IV every 8 hours Azithromycin 500 mg IV daily Duonebs every 4 hours while awake and every 2 hours when necessary. Tobacco use disorder- Counseling cessation GERD- Famotidine 20 mg IV every 12 hours Remaining orders and notations as noted Resident Activity Tracking Resident Involvement: Resident Care Provided Care Provided: [facility]
[2021-01-16] MEDS ORDERED: MAGNESIUM HYDROXIDE SUSP 30 ML UDC PO PRN (02:00)
[2021-01-16] MEDS ORDERED: IPRATROPIUM BROMIDE NEB SOLN 0.02% 2.5 ML VIAL INH PRN (02:00)
[2021-01-16] MEDS ORDERED: clonazePAM 0.5 MG TAB PO PRN (02:00)
[2021-01-16] MEDS ORDERED: ONDANSETRON INJ 2 MG/ML 2 ML VIAL IV PRN (02:00)
[2021-01-16] MEDS ORDERED: ALUMINUM/MAGNESIUM SUSP 30 ML UDC PO PRN (02:00)
[2021-01-16] MEDS ORDERED: BENZONATATE 100 MG CAPSULE PO PRN (02:00)
[2021-01-16] MEDS ORDERED: IBUPROFEN 600 MG TAB PO PRN (02:00)
[2021-01-16] MEDS ORDERED: LEVALBUTEROL 1.25MG/0.5ML NEB INH PRN (02:00)
[2021-01-16] MEDS ORDERED: POLYETHYLENE (MIRALAX) 17 GM PACK PO PRN (02:00)
[2021-01-16] MEDS ORDERED: ALBUTEROL HFA 8 GM INHALER INH PRN (02:00)
[2021-01-16] MEDS ORDERED: ACETAMINOPHEN 325 MG TAB PO PRN (02:00)
[2021-01-16] MEDS ORDERED: diphenhydrAMINE Capsule 25 MG CAP PO PRN (02:23)
--- NOTE | 2021-01-16 08:21 | CT Scan Report ---
CT ANGIOGRAPHY OF THE CHEST, PULMONARY EMBOLUS PROTOCOL CLINICAL HISTORY: Shortness of breath. Altered mental status. COMPARISON STUDY: Chest CT August 23, 2016. Chest radiograph performed earlier today. TECHNIQUE: Following IV administration of 121 mL of Optiray, helical axial images of the chest were o btained utilizing the pulmonary embolus protocol. Maximal intensity projections and sagittal and cor onal reformats were viewed on an independent 3D workstation. IV contrast was administered without co mplication. Automated exposure control was utilized for the study. A dose lowering technique was ut ilized adhering to the principles of ALARA. CT DOSE: 236.66 mGy.cm FINDINGS: Intracanalicular electrode is partially imaged. No pulmonary emboli are identified. The si ze of the heart is normal. There is no pericardial effusion. No thoracic lymphadenopathy is present. There is no thoracic aortic dissection. No pneumothorax or pleural effusion. Multiple small pulmonary nodules are unchanged since CT August 23, 2016. These are benign given stability. Ground glass opaciti es within the lower lungs favor atelectasis. There is bronchial wall thickening with mucus plugging w ithin the bilateral lower lobes. IMPRESSION: 1. No pulmonary emboli identified. 2. Bilateral lower lobe bronchial wall thickening with mild mucus plugging. Glass opacities which fav or atelectasis. 3. Multiple pulmonary nodules which are unchanged since CT of August 23, 2016. These are benign given s tability. ACT 112: Negative or not required by law. Electronically signed by: Aguila Larkin M.D. 01/16/2021 8:19 AM
[2021-01-16 08:29] LABS: Hematocrit (blood only) 39.2 % (37-47); Hemoglobin 13.3 g/dL (12.0-16.0); Lymphocytes # (auto) 0.76 K/uL (1.2-3.4); Lymphocytes % (auto) 12.8 %; Mean Corpuscular Hemoglobin 31.8 pg (25-34); Mean Corpuscular Hgb Conc 33.9 g/dL (32-36); Mean Corpuscular Volume 93.8 fL (80-100); Mean Platelet Volume 9.8 fL (7.4-10.4); Monocytes # (auto) 0.04 K/uL (0.11-0.59); Monocytes % (auto) 0.7 %; Neutrophils # (auto) 5.16 K/uL (1.4-6.5); Neutrophils % (auto) 86.5 %; Platelet Count 280 K/uL (130-400); RDW Standard Deviation 44.7 fL (36.4-46.3); Red Blood Count 4.18 M/uL (4.2-5.4); White Blood Count 5.96 K/uL (4.8-10.8)
--- NOTE | 2021-01-16 08:40 | Electrocardiogram Report ---
Test Reason : Blood Pressure : / mmHG Vent. Rate : 073 BPM Atrial Rate : 073 BPM P-R Int : 130 ms QRS Dur : 072 ms QT Int : 434 ms P-R-T Axes : 061 051 041 degrees QTc Int : 478 ms Poor data quality, interpretation may be adversely affected Normal sinus rhythm with sinus arrhythmia Normal ECG When compared with ECG of 21-MAR-2015 10:22, No significant change was found Confirmed by Larry Grace ([id number]) on 01/16/2021 8:40:35 AM Referred By: Gabriela Pérez Confirmed By:Larry Grace
[2021-01-16 08:53] LABS: BUN Creatinine Ratio 14.5 (10-20); Calcium 8.6 mg/dl (8.5-10.1); Creatinine Clr Calc Pharmacy 89.7 ml/min; Est GFR (African American) 117.7 ml/min; Est GFR (Non-African American) 101.6 ml/min; Magnesium 2.3 mg/dl (1.8-2.4); Potassium 4.1 mmol/L (3.5-5.1)
[2021-01-16 08:54] LABS: Phosphorus 3.5 mg/dl (2.5-4.9)
[2021-01-16] MEDS ORDERED: ESCITALOPRAM OXALATE 20 MG TAB PO SCH (09:00)
[2021-01-16] MEDS ORDERED: methylPREDNISolone 40 MG in SYRINGE 0 ML IV SCH (09:00)
[2021-01-16] MEDS ORDERED: ASPIRIN 81 MG ECTAB PO SCH (09:00)
[2021-01-16] MEDS ORDERED: NICOTINE 21 MG/24 HR TDSY TD SCH (13:00)
--- NOTE | 2021-01-16 13:14 | XRay Report ---
XR chest 1V portable CLINICAL HISTORY: Mucous plugging on admission COMPARISON STUDY: January 15, 2021 FINDINGS: No pneumothorax. No pleural effusion. Minimal linear densities are seen at the right costophrenic angle which might represent small atelect asis . The rest of lung parenchyma is clear. Cardiomediastinal silhouette is within normal limits in size. No significant pulmonary vascular congestion.. Osseous structures: unremarkable IMPRESSION: 1. Minimal atelectasis at the lateral aspect of the right lower lung. ACT 112: Negative or not required by law. The above report was generated using voice recognition software. It may contain grammatical, syntax o r spelling errors. Electronically signed by: Ada Stafford DO 01/16/2021 1:13 PM
--- NOTE | 2021-01-16 15:26 | Discharge Summary ---
Date of Service January 16, 2021 Admission HPI Per Admitting Provider Myesha Jacobs is a 50-year-old female with past medical history significant for COPD, GERD, tobacco use; who presented to the ED earlier today at the recommendation of her primary pulmonology provider (Facundo Murrieta) for continued difficulty breathing. She has been struggling with this difficulty/shortness of breath for the last 2+ weeks, and over this time has had no noted improvement. Had been trialed on oral prednisone, with utilization of doxycycline, and Augmentin over this time. Had no continued improvement in her symptoms on any of these regimens, ultimately leading to presentation to ED. She continues to smoke, has been trying to quit smoking but only ever been successful at getting to 0.5 Packs per day, has not explored other alternative regimens to stopping smoking other than cold turkey and nicotine patches. During evaluation in ED, patient was sent to CT scanner for CT chest PE protocol. Following administration of contrast for the CT patient was laid flat, and ultimately had a syncopal episode. Mikey reyes was called at that time, and patient slowly returned back to normal over the matter of minutes. After this time, she was transitioned back to the emergency department room, before being admitted. Admission Exam Per Admitting Provider Constitutional: WD/WN, vitals as above Eyes: PERRL, conjunctivae normal, anicteric sclerae Respiratory: normal respiratory effort and + prolonged expiratory phase; no respiratory distress, no labored breathing and does not use accessory muscles Auscultation: + wheezes; no crackles, no rales and no rhonchi Cardiovascular: Rate/Rhythm: regular rate and regular rhythm Heart Sounds: no gallop, no murmur and no cardiac rub Vessels: normal peripheral pulses; no JVD Extremities: no edema Gastrointestinal (Abdomen): Inspection/Auscultation: normal bowel sounds; abdomen not distended Percussion/Palpation: abdomen soft; abdomen nontender and no guarding Musculoskeletal: no cyanosis or clubbing, extremities motor strength 5/5 Skin: no rashes, warm and dry Neurologic: PERRL, EOMI, accommodation nl, no face palsy, no dysarthria CN's II-XI intact bilaterally and moves all extremities Psychiatric: Orientation: alert and oriented x 3 Principal Diagnosis COPD exacerbation Discharge Exam GENERAL : No acute distress. Patient observed walking the halls without any dyspnea EYES: No icterus, gaze conjugate NOSE: No evidence of epistaxis MOUTH: No lesions or candidiasis NECK: Supple LUNGS: Some faint bronchospasm that clears with cough. Breath sounds are equal bilaterally. Good inspiratory effort. HEART: Regular, rate controlled. No appreciation of ectopy ABDOMEN: Soft, NT, ND, BS Present EXTREMITIES: No LE edema, pedal pulses intact NEURO: A&OX3 Discharge Data Allergies Allergy/AdvReac Type Severity Reaction Status Date / Time moxifloxacin [From Avelox] Allergy Mild Rash Verified 01/18/21 15:44 sulfamethoxazole Allergy Mild RASH Verified 01/18/21 15:44 trimethoprim Allergy Mild RASH Verified 01/18/21 15:44 doxycycline AdvReac Intermediate NAUSEA/VOMI Verified 01/18/21 15:44 TING Consultations 01/15/21 23:25 ED Decision to Admit Stat Ordered Studies 01/15/21 20:15 CT angio chest PE protocol Urgent XR chest 1V portable 01/16/2021 CLINICAL HISTORY: Mucous plugging on admission COMPARISON STUDY: January 15, 2021 FINDINGS: No pneumothorax. No pleural effusion. Minimal linear densities are seen at the right costophrenic angle which might represent small atelectasis . The rest of lung parenchyma is clear. Cardiomediastinal silhouette is within normal limits in size. No significant pulmonary vascular congestion.. Osseous structures: unremarkable IMPRESSION: 1. Minimal atelectasis at the lateral aspect of the right lower lung. ACT 112: Negative or not required by law. The above report was generated using voice recognition software. It may contain grammatical, syntax or spelling errors. Electronically signed by: Ada Stafford DO 01/16/2021 1:13 PM Hospital Course (1) Acute exacerbation of chronic obstructive pulmonary disease (COPD): Patient presented to emergency department on 01/15/2021 with complaints of severe shortness of breath and exacerbation of COPD She was admitted and started on steroids with Solu-Medrol. She was also placed on azithromycin. Nebulizer treatments were administered. The following day the patient reported that she was doing much better. She was able to ambulate in the halls several laps without shortness of breath. Pulse oximetry was monitored and patient did not desaturate Patient stated that she wanted discharged and was going to leave AMA to the nursing staff Patient was seen and examined and showed clinical improvement as compared to the notes from the admission physician Repeat chest x-ray was obtained and showed atelectasis with no further evidence of superimposed consolidation It was suggested the patient that she stay for another day of IV steroids and observation but patient was adamant about being discharged She was sent home on a steroid taper and advised to finish her antibiotics for COPD exacerbation A follow-up appoint with pulmonary was established and she was advised to call the office or report to the emergency department with further exacerbation (2) Tobacco use disorder: Patient states that she feels that she can quit smoking at this time with the assistance of nicotine patches A prescription was sent to the patient's local pharmacy She will be followed in the office as an outpatient (3) Asthma: No significant bronchospasm at the time of discharge Patient to continue usual bronchodilators as well as Flonase Patient also advised to avoid triggers (4) Chronic bronchiectasis not affecting current episode of care: Patient was discharged with an incentive spirometer and advised to use it on a regular basis Total Time Total Time Spent Total Time Spent (In Minutes): 50 minutes including 2 visits and physical exam with the patient Discharge Plan Discharge Items Patient Disposition: Home - Self-Care Reason For Visit: copd exacerbation Discharge Diagnosis: COPD exacerbation Condition on Discharge: Good Activity: Per Instructions section Activity Comment: You should rest for the remainder of the week and finish her antibiotics. Lifting: Gradually increase as tolerated Sexual Activity: After one week Exercise/Sports: Gradually increase as tolerated Driving/Machine Use: Resume 1 day after discharge Weightbearing: Full weightbearing Non-emergency contact: Primary Care Provider Call non-emergency contact if: you have any medication questions and you have a fever Follow-up/Referrals: Sam Betts PA-C [Hospitalist] - 01/23/21 11:00 am (This will be a telemed appointment. The provider will call you for the appointment. Please be available to take the call) Gabriela Pérez MD [Primary Care Provider] - Diet: Regular Addtl Attending Provider Instructions: You were admitted for COPD exacerbation and started on azithromycin and methylprednisolone. You are being discharged on the remaining doses of your azithromycin as well as a prednisone taper. Your oxygen levels are adequate at this time. You are encouraged to quit smoking completely and are being sent home with prescriptions for nicotine patches. Please call the pulmonary office to move up your appointment with Facundo Villasenor, PA-C if you have any further respiratory complaints. Pending Studies at Discharge: No Stand-Alone Forms: [facility] [employer], Work/School Release, Smoking Cessat ion Medications and DC Order Prescriptions: New nicotine [Nicoderm CQ] 21 mg/24 hr Patch 24 Hour 21 mg transdermal QAM Qty: 7 RF: 0 benzonatate [Tessalon Perles] 100 mg Capsule 100 mg PO HS PRN (Reason: cough) Qty: 14 RF: 0 prednisone 10 mg tablet 10 mg PO DAILY Qty: 30 RF: 0 azithromycin 250 mg tablet 250 mg PO DAILY 6 Days Qty: 4 RF: 0 Continued aspirin [Adult Aspirin Regimen] 81 mg tablet,delayed release (DR/EC) 81 mg PO DAILY RF: 0 fluticasone propionate [Flonase Allergy Relief] 50 mcg/actuation spray,suspension 1 spray INTRANASAL DAILY Qty: 18.2 RF: 5 cyanocobalamin (vitamin B-12) 1,000 mcg/mL solution 1,000 mcg IM MONTHLY RF: 0 ipratropium bromide 0.02 % solution 2.5 ml INH Q4H PRN (Reason: shortness of breath or wheezing) Qty: 150 RF: 5 mometasone-formoterol 200-5 mcg/actuation HFA aerosol inhaler 1 puffs inhalation BID Qty: 13 RF: 5 albuterol sulfate 90 mcg/actuation HFA aerosol inhaler 2 puffs inhalation Q4H PRN (Reason: shortness of breath) Qty: 1 RF: 0 ondansetron HCl 4 mg tablet 4 mg PO Q8H PRN (Reason: nausea and vomiting) RF: 0 Dexilant 60 mg capsule,biphase delayed releas 60 mg PO DAILY RF: 0 budesonide [Pulmicort] 0.5 mg/2 mL suspension for nebulization 0.5 mg inhalation DAILY PRN (Reason: Shortness Of Breath Or Wheezing) RF: 0 clonazepam [Klonopin] 0.5 mg Tablet 0.5 mg PO TID PRN (Reason: Anxiety) RF: 0 propranolol 10 mg Tablet 10 mg PO DAILY RF: 0 ibuprofen 600 mg Tablet 600 mg PO QID PRN (Reason: Pain) RF: 0 estradiol [Estrace] 0.01 % (0.1 mg/gram) Cream 2 g VAGINAL WK RF: 0 escitalopram oxalate [Lexapro] 20 mg Tablet 20 mg PO DAILY RF: 0 levalbuterol HCl [Xopenex] 1.25 mg/3 mL solution for nebulization 1.25 mg INH Q4H PRN (Reason: Shortness Of Breath) RF: 0 pseudoephedrine HCl 60 mg Tablet 60 mg PO BID RF: 0 calcium carbonate 200 mg calcium (500 mg) Tablet,Chewable 200 mg PO TID PRN (Reason: Heartburn) RF: 0 Discontinued prednisone 10 mg tablet 10 mg PO UD RF: 0 doxycycline hyclate 100 mg capsule 100 mg PO Q12 RF: 0 Discharge Orders: Discharge Order (Routine); Ordered 01/16/21 Ordered By: Sam Betts Admission Data Admit Date/Time: 01/15/21 23:50 Attending Provider: Byron Arias Admit Provider: Camacho Gonsalez Primary Care Provider: Gabriela Pérez Other Providers: Kingsley Leone Other Interventions: Discharge Summary Assessment (RN) Last Done: 01/16/21 15:25 Supervising Physician Co-Signing Physician Notes Attending addendum: I have physically seen this patient, and discussed plan of care with the patient after discussing with HAMLET Betts. My exam and hospital course is similar to above documentation. Assessment and Plan: COPD exacerbation- Treated with steroids and antibiotics. Patient imrpoved, will be discharged on antibiotics and steroid taper Tobacco use disorder- Counseling cessation Coding Level of Care Code OBSERV/HOSP SAME DATE LVL 3 Diagnoses Acute exacerbation of chronic obstructive pulmonary disease (COPD) J44.1 Tobacco use disorder F17.200 Asthma J45.909 Chronic bronchiectasis not affecting current episode of care J47.9 Time Spent (min) 50
--- NOTE | 2021-01-17 20:18 | Billing Data ---
Date of Service January 17, 2021 Coding Level of Care Code INT OBSERVATION CARE 70M LVL 3
== END 2021-01-16 16:04 | disposition home or self-care (01) ==
LOC: 2W 15:59 → ED 15:59 → SUATTDRO 23:50 → 2W 01-16 02:00

== ENCOUNTER 2021-01-18 13:06 | Observation (INO) ==
[2021-01-18] MEDS ORDERED: ALBUT/IPRATROP 3MG/0.5MG NEB 3 ML VIAL NEB STA (15:07)
[2021-01-18 15:40] LABS: Basophils # (auto) 0.02 K/uL (0-0.2); Basophils % (auto) 0.2 %; Eosinophils # (auto) 0.08 K/uL (0-0.5); Eosinophils % (auto) 0.7 %; Hematocrit (blood only) 39.2 % (37-47); Hemoglobin 13.1 g/dL (12.0-16.0); Immature Granulocytes # (auto) 0.04 K/uL (0.00-0.02); Immature Granulocytes % (auto) 0.3 %; Lymphocytes # (auto) 3.86 K/uL (1.2-3.4); Lymphocytes % (auto) 33.4 %; Mean Corpuscular Hemoglobin 31.8 pg (25-34); Mean Corpuscular Hgb Conc 33.4 g/dL (32-36); Mean Corpuscular Volume 95.1 fL (80-100); Mean Platelet Volume 9.6 fL (7.4-10.4); Monocytes # (auto) 0.83 K/uL (0.11-0.59); Monocytes % (auto) 7.2 %; Neutrophils # (auto) 6.72 K/uL (1.4-6.5); Neutrophils % (auto) 58.2 %; Platelet Count 323 K/uL (130-400); RDW Coefficient of Variation 13.3 % (11.5-14.5); RDW Standard Deviation 46.7 fL (36.4-46.3); Red Blood Count 4.12 M/uL (4.2-5.4); White Blood Count 11.55 K/uL (4.8-10.8)
--- NOTE | 2021-01-18 15:55 | XRay Report ---
XR chest 1V portable HISTORY: Dyspnea COMPARISON: Chest 01/16/2021. FINDINGS: No focal lung consolidations to suggest pneumonia. No evidence for pulmonary edema. Thoraci c spinal stimulator leads are again noted. The heart is normal in size. No pleural fusions. No pneumo thorax. IMPRESSION: No acute process. ACT 112: Negative or not required by law. Electronically signed by: Bennett Garcia M.D. 01/18/2021 3:54 PM
[2021-01-18 16:10] LABS: Alanine Aminotransferase 18 U/L (12-78); Albumin Level 3.7 gm/dl (3.4-5.0); Aspartate Aminotransferase 14 U/L (15-37); BUN Creatinine Ratio 13.4 (10-20); Blood Urea Nitrogen 10 mg/dl (7-18); Calcium 8.7 mg/dl (8.5-10.1); Carbon Dioxide 30 mmol/L (21-32); Chloride 107 mmol/L (98-107); Creatinine Clr Calc Pharmacy 84.3 ml/min; Est GFR (African American) 104.5 ml/min; Est GFR (Non-African American) 90.2 ml/min; Glucose 81 mg/dl (70-99); Magnesium 2.5 mg/dl (1.8-2.4); Potassium 3.6 mmol/L (3.5-5.1); Sodium 141 mmol/L (136-145)
[2021-01-18 16:14] LABS: Albumin Globulin Ratio 1.1 (0.9-2); Alkaline Phosphatase 75 U/L (45-117); Bilirubin,Total 0.3 mg/dl (0.2-1); Globulin 3.3 gm/dl (2.5-4.0); NT Pro B Type Natriuretic Pept 167 pg/ml (0-900); Troponin I < 0.015 ng/ml (0-0.045)
--- NOTE | 2021-01-18 16:21 | Electrocardiogram Report ---
Test Reason : Blood Pressure : / mmHG Vent. Rate : 064 BPM Atrial Rate : 064 BPM P-R Int : 102 ms QRS Dur : 070 ms QT Int : 440 ms P-R-T Axes : 062 062 043 degrees QTc Int : 453 ms Poor data quality, interpretation may be adversely affected Sinus rhythm with short NM Minimal voltage criteria for LVH, may be normal variant Borderline ECG When compared with ECG of 15-JAN-2021 20:25, No significant change was found Confirmed by Larry Grace ([id number]) on 01/18/2021 4:21:13 PM Referred By: Confirmed By:Larry Grace
--- NOTE | 2021-01-18 16:28 | History & Physical Report ---
Date of Service January 18, 2021 Assessment & Plan (1) Acute bronchitis: Plan: Physical exam and cough consistent with bronchitis - Continue with steroid and Azithromycin for anti-inflammatory properties - Continue levalbuterol scheduled q6 hours with albuterol PRN - Continue Pulmicort - Continue Flonase- held pseudoephedrine - Flutter valve - Influenze A&B sent - consider sending biofire if no change (2) Acute exacerbation of chronic obstructive pulmonary disease (COPD): Plan: As above- not on oxygen (3) GERD (gastroesophageal reflux disease): Plan: Continue dexlansoprazole (4) Tobacco use disorder: Plan: Continue nicotine patch (5) Asthma: Plan: As above History of Present Illness Primary Care Provider: Gabriela Pérez MD 50 YOF with past medical history of: COPD, GERD, smoker (currently trying to stop with nicotene patch), bronchiectasis, migraine, TIA, hiatal hernia. Dayanna edwards returns to the [facility] today for continued cough and dyspnea. She was originally admitted on had a negative CTA of her chest for PE, she was admitted for COPD exacerbation and was subsequently discharged on with AZT, 40mg oral Prednisone and her regular home inhalers to include Levalbuterol, Ipatropium and Albuterol, and Pulmicort. She continues to have deep raspy cough and dyspnea which is preventing her from lying flat or getting any sleep. She normally has a productive cough with thick mucuous, however she is not bringing up any mucous at this time with her coughing. She used her nebulizer 4 times throughout the night last night as well as her inhalers and could not get her symptoms under controlled. Patient was seen aproximatly 2 weeks ago for symptoms of congestion with sinus pain at urgent care as well as outside hospital she was given a course of Augmentin first and when she didn't improve this was changed to Docycyline. She was started on the Azithromycin upon admission on the 16 of January. She states that she does have some periods of hot and then cold feeling but can not endorse she actually had any fevers. Her chest feels tight but without pain. Her chest xrays and CTA of the chest do not reveal any consolidative process or pulmonary edema. Thickening of the bronhioles noted. Patient will be admitted continue with IV solumederol, bronchodilator therapy, will hold her anticholinergics with drying of her secretions and continue ICS with Pulmicort as well as her Azithromycin. Will add Robitussin for her cough. Pulmonary consult will be placed. Patient has had her COVID vaccine and COVID test is negative on admission. Allergies Allergy/AdvReac Type Severity Reaction Status Date / Time moxifloxacin [From Avelox] Allergy Mild Rash Verified 01/18/21 15:44 sulfamethoxazole Allergy Mild RASH Verified 01/18/21 15:44 trimethoprim Allergy Mild RASH Verified 01/18/21 15:44 doxycycline AdvReac Intermediate NAUSEA/VOMI Verified 01/18/21 15:44 TING Home Medications Medication Instructions Recorded Confirmed Type clonazepam 0.5 mg tablet (Klonopin) 0.5 mg PO TID PRN 04/30/18 01/18/21 History escitalopram oxalate 20 mg tablet 20 mg PO DAILY 04/30/18 01/18/21 History (Lexapro) estradiol (Estrace) 2 g VAGINAL WK 04/30/18 01/18/21 History ibuprofen 600 mg tablet 600 mg PO QID PRN 04/30/18 01/18/21 History propranolol 10 mg tablet 10 mg PO DAILY 04/30/18 01/18/21 History albuterol sulfate 90 mcg/actuation 2 puffs INHALATION Q4H PRN #1 gm 01/25/19 01/18/21 History aerosol inhaler ondansetron HCl 4 mg tablet 4 mg PO Q8H PRN tab 01/25/19 01/18/21 History fluticasone propionate 50 1 spray INTRANASAL DAILY #18.2 ml 09/20/19 01/18/21 Rx mcg/actuation nasal spray,suspension (Flonase Allergy Relief) aspirin 81 mg tablet,delayed 81 mg PO DAILY 11/22/19 01/18/21 History release (Adult Aspirin Regimen) mometasone-formoterol HFA 200 1 puffs INHALATION BID #13 gm 01/07/20 01/18/21 Rx mcg-5 mcg/actuation aerosol inhaler cyanocobalamin (vitamin B-12) 1,000 mcg IM MONTHLY ml 04/25/20 01/18/21 History 1,000 mcg/mL injection solution budesonide 0.5 mg/2 mL suspension 0.5 mg INHALATION DAILY PRN 10/03/20 01/18/21 History for nebulization (Pulmicort) dexlansoprazole 60 mg 60 mg PO DAILY 10/03/20 01/18/21 History capsule,biphase delayed release (Dexilant) ipratropium bromide 0.02 % 2.5 ml INH Q4H PRN #150 ml 01/10/21 01/18/21 Rx solution for inhalation calcium carbonate 200 mg calcium 200 mg PO TID PRN 01/15/21 01/18/21 History (500 mg) chewable tablet levalbuterol HCl 1.25 mg/3 mL 1.25 mg INH Q4H PRN 01/15/21 01/18/21 History solution for nebulization (Xopenex) pseudoephedrine HCl 60 mg tablet 60 mg PO BID 01/15/21 01/18/21 History azithromycin 250 mg tablet 250 mg PO DAILY 6 Days #4 tab 01/16/21 01/18/21 Rx benzonatate 100 mg capsule 100 mg PO HS PRN #14 cap 01/16/21 01/18/21 Rx (Tessalalexa Lorenzana) nicotine 21 mg/24 hr daily 21 mg TRANSDERMAL QAM #7 ea 01/16/21 01/18/21 Rx transdermal patch (Nicoderm CQ) prednisone 10 mg tablet 10 mg PO DAILY #30 tab 01/16/21 01/18/21 Rx Past Med/Surg History Medical History Cat scratch fever COPD (chronic obstructive pulmonary disease) Esophagitis GERD (gastroesophageal reflux disease) Lung nodule Surgical History History of cholecystectomy History of endometrial ablation History of lumbar fusion L5-S1 History of tubal ligation Social History Smoking Status: Current every day smoker Tobacco Type: Cigarettes Cigarettes Per Day: 1; Second Hand Exposure: No; Do You Dip or Chew Tobacco: No; Hx Alcohol Use: No Hx Substance Use: No Preferred Language: Greek Communication Ability: Effective 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 Beliefs That Will Affect Care: None Current Living Situation: Family Other Information That Helps Us Care for You: No Feels Safe at Home: Yes Safety Concerns: Feels Safe At This Time Assistive Devices: Glasses Review of Systems Review of Systems: REVIEW OF SYSTEMS: Constitutional: (+) chills and sweats Eyes: No diplopia, no worsening or blurred vision ENT: normal hearing, no trouble swallowing Respiratory: (+) cough, sputum, dyspnea at rest or on exertion Cardiovascular: (-) chest pain, tightness or palpitations Abdomen: No pain, nausea, vomiting, diarrhea or constipation Musculoskeletal: No joint pain, calf pain, swelling Neurologic: No weakness, numbness/tingling, or balance problems Psychiatric: (+) anxiety, No depression Skin: No rash or itch Physical Exam Physical Exam: PHYSICAL EXAM: General: awake, alert, fatigued appearing Head: Normocephalic, atraumatic ENT: PERRL, EOMI, no pharyngeal exudate, mucous membranes moist Neuro: AAO x 3, speech clear and appropriate, strength intact bilaterally 5/5, sensation intact and equal all extremities and dermatomes, no pronator drift Chest: equal rise and fall of the chest, no accessory muscle use, no heaves or thrills, scattered wheeze throughout with egophony, prolonged expiratory phase, on room air Cardiac: Regular rate and rhythm, telemetry reviewed-NSR, skin warm dry, cap refill <3 seconds, peripheral pulses +2 no JVD, no murmur, no edema GI: NABS x 4 quadrants, soft, nontender to palpation, no rebound, guarding or tenderness : Spontaneously voiding, no pain, no CVA tenderness, Extremities: Normal inspection, no peripheral edema or erythema, calfs nontender to palpation Psych: Normal mood and affect Skin: no rash or erythema Results & Data Results & Data ([facility]) Vital Signs (Past 12 Hours) Vital Signs Temp Pulse Pulse Resp BP Pulse Ox 01/18/21 15:40 90 22 98 01/18/21 15:15 61 16 98 01/18/21 13:16 99 01/18/21 13:12 36.6 C 76 18 135/83 99 Laboratory Results Abnormal lab results 01/18/21 01/18/21 Range/Units 15:28 15:28 WBC 11.55 H (4.8-10.8) K/uL RBC 4.12 L (4.2-5.4) M/uL RDW Std Deviation 46.7 H (36.4-46.3) fL Neut # (Auto) 6.72 H (1.4-6.5) K/uL Lymph # (Auto) 3.86 H (1.2-3.4) K/uL Bartholomew # (Auto) 0.83 H (0.11-0.59) K/uL Immature Gran # (Auto) 0.04 H (0.00-0.02) K/uL Magnesium 2.5 H (1.8-2.4) mg/dl AST 14 L (15-37) U/L Diagnostic Findings Chest X-Ray 01/18/21 15:00 XR chest 1V portable HISTORY: Dyspnea COMPARISON: Chest 01/16/2021. FINDINGS: No focal lung consolidations to suggest pneumonia. No evidence for pulmonary edema. Thoracic spinal stimulator leads are again noted. The heart is normal in size. No pleural fusions. No pneumothorax. IMPRESSION: No acute process. Electronically signed by: Bennett Garcia M.D. 01/18/2021 3:54 PM Medications Administered Discontinued Medications Albuterol (Albut/Ipratrop 3mg/0.5mg Neb 3 Ml Vial) 3 ml NEB NOW STA Stop: 01/18/21 15:08 Last Admin: 01/18/21 15:15 Dose: 3 ml Documented by: [id number] Methylprednisolone (Methylprednisolone 40 Mg/Ml Vial) 40 mg IV NOW STA Stop: 01/18/21 15:13 Last Admin: 01/18/21 15:39 Dose: 40 mg Documented by: [id number] Home Medications clonazepam 0.5 mg tablet (Klonopin) 0.5 mg PO TID PRN 04/30/18 [History Confirmed 01/18/21] escitalopram oxalate 20 mg tablet (Lexapro) 20 mg PO DAILY 04/30/18 [History Confirmed 01/18/21] estradiol (Estrace) 2 g VAGINAL WK 04/30/18 [History Confirmed 01/18/21] ibuprofen 600 mg tablet 600 mg PO QID PRN 04/30/18 [History Confirmed 01/18/21] propranolol 10 mg tablet 10 mg PO DAILY 04/30/18 [History Confirmed 01/18/21] albuterol sulfate 90 mcg/actuation aerosol inhaler 2 puffs INHALATION Q4H PRN #1 gm 01/25/19 [History Confirmed 01/18/21] ondansetron HCl 4 mg tablet 4 mg PO Q8H PRN tab 01/25/19 [History Confirmed 01/18/21] fluticasone propionate 50 mcg/actuation nasal spray,suspension (Flonase Allergy Relief) 1 spray INTRANASAL DAILY #18.2 ml 09/20/19 [Rx Confirmed 01/18/21] aspirin 81 mg tablet,delayed release (Adult Aspirin Regimen) 81 mg PO DAILY 11/22/19 [History Confirmed 01/18/21] mometasone-formoterol HFA 200 mcg-5 mcg/actuation aerosol inhaler 1 puffs INHALATION BID #13 gm 01/07/20 [Rx Confirmed 01/18/21] cyanocobalamin (vitamin B-12) 1,000 mcg/mL injection solution 1,000 mcg IM MONTHLY ml 04/25/20 [History Confirmed 01/18/21] budesonide 0.5 mg/2 mL suspension for nebulization (Pulmicort) 0.5 mg INHALATION DAILY PRN 10/03/20 [History Confirmed 01/18/21] dexlansoprazole 60 mg capsule,biphase delayed release (Dexilant) 60 mg PO DAILY 10/03/20 [History Confirmed 01/18/21] ipratropium bromide 0.02 % solution for inhalation 2.5 ml INH Q4H PRN #150 ml 01/10/21 [Rx Confirmed 01/18/21] calcium carbonate 200 mg calcium (500 mg) chewable tablet 200 mg PO TID PRN 01/15/21 [History Confirmed 01/18/21] levalbuterol HCl 1.25 mg/3 mL solution for nebulization (Xopenex) 1.25 mg INH Q4H PRN 01/15/21 [History Confirmed 01/18/21] pseudoephedrine HCl 60 mg tablet 60 mg PO BID 01/15/21 [History Confirmed 01/18/21] azithromycin 250 mg tablet 250 mg PO DAILY 6 Days #4 tab 01/16/21 [Rx Confirmed 01/18/21] benzonatate 100 mg capsule (Tessalon Perles) 100 mg PO HS PRN #14 cap 01/16/21 [Rx Confirmed 01/18/21] nicotine 21 mg/24 hr daily transdermal patch (Nicoderm CQ) 21 mg TRANSDERMAL QAM #7 ea 01/16/21 [Rx Confirmed 01/18/21] prednisone 10 mg tablet 10 mg PO DAILY #30 tab 01/16/21 [Rx Confirmed 01/18/21] ECG Additional Comments: Vent. Rate : 064 BPM Atrial Rate : 064 BPM P-R Int : 102 ms QRS Dur : 070 ms QT Int : 440 ms P-R-T Axes : 062 062 043 degrees QTc Int : 453 ms Poor data quality, interpretation may be adversely affected Sinus rhythm with short IL Minimal voltage criteria for LVH, may be normal variant Borderline ECG When compared with ECG of 15-JAN-2021 20:25, No significant change was found Confirmed by Larry Grace ([id number]) on 01/18/2021 4:21:13 PM Code Status & VTE Plan Code Status CODE: DNR/DNI VTE: SCD's, ambulation, Lovenox Supervising Physician Co-Signing Physician Notes Patient seen and examined, chart reviewed, case discussed with FACILITY OPERATIONS MANAGER Gordo and I agree with his assessment and plan as documented above. Briefly, patient is a 50-year-old female with history of COPD presenting with persistent cough and dyspnea. Patient with brief hospital admission on January 16 for suspected COPD exacerbation for which she was treated with azithromycin, prednisone and inhalers. Still with ongoing cough and dyspnea. Cough is dry. She denies fevers, chills, sweats or chest pain. Patient has been using her nebulizer every 6 hours at home. She comes to the ER for admission at request of pulmonology. No additional complaints at this time On physical exam she is afebrile, hemodynamically stable, no acute distress. Breathing comfortably and saturating well on room air Skinwarm, dry, intact, no rash or lesions HEENTnormocephalic/atraumatic, pupils equal round react to light, moist mucous membranes Lungsequal air entry bilaterally, coarse breath sounds bilaterally with scattered end expiratory wheezing, + cough Abdomen+ BS, soft, nontender, nondistended Extremitieswarm, well-perfused, no clubbing/cyanosis/edema Neurogrossly intact, moving all extremities with equal strength Labs and images reviewed. Significant for WBC = 11.55. Covid is negative Chest x-ray with no acute process, no consolidation or edema 50-year-old female presenting with persistent cough, shortness of breath concerning for COPD exacerbation versus acute bronchitis Admit to medical Continue steroid taper, azithromycin Scheduled nebulizer treatments Pulmonary consultation appreciated Remainder of plan as above PG Care Time/CCT Total # of Minutes Spent Total Time Spent with Patient: Total time spent is greater than 50% in coordination of care (as documented) at patient's floor/unit and/or counseling patient: Coding Level of Care Code 94926 Initial Inpt Care Lvl 3 Diagnoses Acute bronchitis J20.9 Bronchitis organism: unspecified organism Acute exacerbation of chronic obstructive pulmonary disease (COPD) J44.1 GERD (gastroesophageal reflux disease) K21.9 Tobacco use disorder F17.200 Asthma J45.909 (1) Acute bronchitis Bronchitis organism: unspecified organism Qualified Code(s): J20.9 - Acute bronchitis, unspecified
[2021-01-18] MEDS ORDERED: ALBUTEROL HFA 8 GM INHALER INH PRN (17:53)
[2021-01-18] MEDS ORDERED: guaiFENesin/DEXTROM SYRUP 100MG/10MG 5ML UDC PO PRN (17:53)
[2021-01-18] MEDS ORDERED: CALCIUM CARBONATE 500 MG CHEWABLE TAB PO PRN (17:53)
[2021-01-18] MEDS ORDERED: ACETAMINOPHEN 325 MG TAB PO PRN (17:53)
[2021-01-18] MEDS ORDERED: ONDANSETRON 4 MG OD TAB PO PRN (19:04)
--- NOTE | 2021-01-18 19:14 | Emergency Department Note ---
Impression & Plan SOB (shortness of breath), COPD (chronic obstructive pulmonary disease) ED Provider Note INFORMANT: Patient ED PROVIDER(S): Lucien Pinto MD CHIEF COMPLAINT: Shortness of breath PLAN: Disposition: Admitted Condition: Good Outpatient prescription management: none Referral: None MEDICAL DECISION MAKING: Patient presented because of continued shortness of breath, cough and upper abdo clive discomfort with coughing. She had sore rectus muscles. There was no peritoneal findings on abdominal examination. The patient had a work-up initiated. She was given a DuoNeb and IV Solu-Medrol. She had an unremarkable chest x-ray. Her CBC and chemistry panel were unremarkable except for mild leukocytosis. Likely this is due to her steroids. ECG was nonischemic. Patient was directed to the ER by pulmonology. I did contact Dr. Logan of pulmonology. He recommended her to be admitted. Continue IV Solu-Medrol 40 mg IV every 8 and nebulizer treatments. He wants to see the patient in the hospital for pulmonary consultation. Consultation was made with Dr. Pérez of internal medicine. Patient was evaluated in the ER by the team for further management. Triage Nursing notes reviewed and agree them. Vital Signs: reviewed and remarkable for no significant abnormalities Differential diagnosis: Reactive airway disease, pneumonia, pneumothorax, COPD, CHF, infections, cardiac ischemia, pulmonary embolism, musculoskeletal, gastrointestinal, as well as other pathologies. Diagnostics interpreted by me: ECG: Twelve-lead ECG reveals sinus rhythm with a short OK at 64 bpm. Left ventricular hypertrophy present. No ST elevation or depression. No PACs or PVCs. Normal axis. Cardiac Monitoring: Cardiac monitoring ordered by me: The patient was placed on continuous cardiac monitoring and observed. It revealed a normal sinus rhythm at 75 beats per minute without ectopy or evidence of dysrhythmia. Imaging studies: Imaging studies: Chest x-ray. Findings: A chest x-ray was performed and revealed no pneumothorax, effusion, infiltrate, pulmonary edema, free air under the diaphragm, or wide mediastinum. Impression: No acute disease. HPI: The patient is a 50 year old female who presents to the Emergency Room with complaints of shortness of breath. This started last week and is persisting despite admission and treatment with steroids and Zithromax. The patient also notes the following associated symptoms, cough, upper abdominal soreness with coughing, difficulty lying flat, dyspnea on exertion. The patient has found no relieving factors. Current pain is rated as 0/10. Patient is using her nebulizers as well. Pt denies LOC, headache, fevers, chills, diaphoresis, visual changes, neck pain, chest pain, nausea, vomiting,back pain, melena, hematochezia, urinary symptoms, numbness, weakness, lymphadenopathy, rash, or other complaints. ROS: See above HPI for pertinent positives & negatives. A total of 10 systems reviewed and were otherwise negative. PAST MEDICAL HISTORY:See Below , COPD PAST SURGICAL HISTORY:See Below, FAMILY HISTORY:See Below SOCIAL HISTORY:See Below, smoker HOME MEDICATIONS:See Below ALLERGIES:See Below VITALS:See Below PHYSICAL EXAMINATION: GENERAL: Awake, alert, dyspneic-appearing, in no distress HENT: Normocephalic, atraumatic. Oropharynx unremarkable. EYES: Normal conjunctiva. Sclera non-icteric. NECK: Inspection normal. Non-tender. Supple. No nuchal rigidity. FROM. No masses. RESPIRATORY: Scattered wheezes. No rales. Normal respiratory effort. CARDIAC: Normal rate. Normal rhythm. No murmurs. No rubs. Extremities warm and well perfused. Pulses equal. No JVD. GI: Soft, non-distended. No tenderness to palpation. No rebound or guarding. No masses. RECTAL: Deferred. MUSCULOSKELETAL: Atraumatic. Chest examination reveals no tenderness. The back is symmetrical on inspection without obvious abnormality. There is no CVA tenderness to palpation. No joint edema. LOWER EXTREMITIES: Calves are equal size bilaterally and non-tender. No edema. No discoloration. NEURO: Normal sensorium. No sensory or motor deficits noted. SKIN: No rash or jaundice noted. Lucien Pinto MD Past Med/Surg History Medical History Cat scratch fever COPD (chronic obstructive pulmonary disease) Esophagitis GERD (gastroesophageal reflux disease) Lung nodule Surgical History History of cholecystectomy History of endometrial ablation History of lumbar fusion L5-S1 History of tubal ligation Social History Smoking Status: Current every day smoker Tobacco Type: Cigarettes Cigarettes Per Day: 1; Second Hand Exposure: No; Do You Dip or Chew Tobacco: No; Hx Alcohol Use: No Hx Substance Use: No Preferred Language: Turkmen Communication Ability: Effective Expediter Required: No Beliefs That Will Affect Care: None Current Living Situation: Family Other Information That Helps Us Care for You: No Feels Safe at Home: Yes Safety Concerns: Feels Safe At This Time Assistive Devices: Glasses Allergies Allergies Allergy/AdvReac Type Severity Reaction Status Date / Time moxifloxacin [From Avelox] Allergy Mild Rash Verified 01/18/21 15:44 sulfamethoxazole Allergy Mild RASH Verified 01/18/21 15:44 trimethoprim Allergy Mild RASH Verified 01/18/21 15:44 doxycycline AdvReac Intermediate NAUSEA/VOMI Verified 01/18/21 15:44 TING Home Meds Home Medications Medication Instructions Recorded Confirmed clonazepam 0.5 mg tablet (Klonopin) 0.5 mg PO TID PRN 04/30/18 01/18/21 escitalopram oxalate 20 mg tablet 20 mg PO DAILY 04/30/18 01/18/21 (Lexapro) estradiol (Estrace) 2 g VAGINAL WK 04/30/18 01/18/21 ibuprofen 600 mg tablet 600 mg PO QID PRN 04/30/18 01/18/21 propranolol 10 mg tablet 10 mg PO DAILY 04/30/18 01/18/21 albuterol sulfate 90 mcg/actuation 2 puffs INHALATION Q4H PRN #1 gm 01/25/19 01/18/21 aerosol inhaler ondansetron HCl 4 mg tablet 4 mg PO Q8H PRN tab 01/25/19 01/18/21 aspirin 81 mg tablet,delayed 81 mg PO DAILY 11/22/19 01/18/21 release (Adult Aspirin Regimen) cyanocobalamin (vitamin B-12) 1,000 mcg IM MONTHLY ml 04/25/20 01/18/21 1,000 mcg/mL injection solution budesonide 0.5 mg/2 mL suspension 0.5 mg INHALATION DAILY PRN 10/03/20 01/18/21 for nebulization (Pulmicort) dexlansoprazole 60 mg 60 mg PO DAILY 10/03/20 01/18/21 capsule,biphase delayed release (Dexilant) calcium carbonate 200 mg calcium 200 mg PO TID PRN 01/15/21 01/18/21 (500 mg) chewable tablet levalbuterol HCl 1.25 mg/3 mL 1.25 mg INH Q4H PRN 01/15/21 01/18/21 solution for nebulization (Xopenex) pseudoephedrine HCl 60 mg tablet 60 mg PO BID 01/15/21 01/18/21 Previous Rx's Medication Instructions Recorded fluticasone propionate 50 1 spray INTRANASAL DAILY #18.2 ml 09/20/19 mcg/actuation nasal spray,suspension (Flonase Allergy Relief) mometasone-formoterol HFA 200 1 puffs INHALATION BID #13 gm 01/07/20 mcg-5 mcg/actuation aerosol inhaler ipratropium bromide 0.02 % 2.5 ml INH Q4H PRN #150 ml 01/10/21 solution for inhalation azithromycin 250 mg tablet 250 mg PO DAILY 6 Days #4 tab 01/16/21 benzonatate 100 mg capsule 100 mg PO HS PRN #14 cap 01/16/21 (Tessalon Perles) nicotine 21 mg/24 hr daily 21 mg TRANSDERMAL QAM #7 ea 01/16/21 transdermal patch (Nicoderm CQ) prednisone 10 mg tablet 10 mg PO DAILY #30 tab 01/16/21 Results & Data (ED) Vital Signs Vital Signs - 24 hr 01/18/21 13:12 01/18/21 13:16 01/18/21 15:02 Temperature 36.6 C Temperature Source Temporal Artery Scan Pulse Rate 76 64 Pulse Rate [Right Finger] Pulse Rate from SpO2 Sensor 64 Pulse Rhythm Respiratory Rate 18 21 Respiratory Effort / Characteristics Short of Breath Blood Pressure 135/83 138/85 Blood Pressure Mean 100 102 Blood Pressure Position Sitting Pulse Oximetry 99 99 98 Oxygen Delivery Method Room Air Room Air Room Air Sepsis Recent Fever Within 48 Hours No Sepsis New/Unexplained Change in Mental Status N/A Sepsis Action Taken by Nursing No Action Required 01/18/21 15:15 01/18/21 15:30 01/18/21 15:40 Temperature Temperature Source Pulse Rate 63 90 Pulse Rate [Right Finger] 61 Pulse Rate from SpO2 Sensor 65 Pulse Rhythm Regular Respiratory Rate 16 18 22 Respiratory Effort / Characteristics Non-Labored Spontaneous Blood Pressure 126/78 Blood Pressure Mean 94 Blood Pressure Position Pulse Oximetry 98 98 98 Oxygen Delivery Method Room Air Room Air Room Air Sepsis Recent Fever Within 48 Hours Sepsis New/Unexplained Change in Mental Status Sepsis Action Taken by Nursing 01/18/21 16:00 01/18/21 16:30 Temperature Temperature Source Pulse Rate 70 62 Pulse Rate [Right Finger] Pulse Rate from SpO2 Sensor 68 62 Pulse Rhythm Respiratory Rate 20 17 Respiratory Effort / Characteristics Blood Pressure 138/79 120/78 Blood Pressure Mean 98 92 Blood Pressure Position Pulse Oximetry 97 99 Oxygen Delivery Method Room Air Room Air Sepsis Recent Fever Within 48 Hours Sepsis New/Unexplained Change in Mental Status Sepsis Action Taken by Nursing Laboratory Data Result diagrams: 01/18/21 15:28 01/18/21 15:28 Lab Results 01/18/21 01/18/21 01/18/21 Range/Units 15:28 15:28 15:28 WBC 11.55 H (4.8-10.8) K/uL RBC 4.12 L (4.2-5.4) M/uL Hgb 13.1 (12.0-16.0) g/dL Hct 39.2 (37-47) % MCV 95.1 (80-100) fL MCH 31.8 (25-34) pg MCHC 33.4 (32-36) g/dL RDW Std Deviation 46.7 H (36.4-46.3) fL RDW Coeff of Shanika 13.3 (11.5-14.5) % Plt Count 323 (130-400) K/uL MPV 9.6 (7.4-10.4) fL Immature Gran % (Auto) 0.3 % Neut % (Auto) 58.2 % Lymph % (Auto) 33.4 % Weber % (Auto) 7.2 % Eos % (Auto) 0.7 % Baso % (Auto) 0.2 % Neut # (Auto) 6.72 H (1.4-6.5) K/uL Lymph # (Auto) 3.86 H (1.2-3.4) K/uL Weber # (Auto) 0.83 H (0.11-0.59) K/uL Eos # (Auto) 0.08 (0-0.5) K/uL Baso # (Auto) 0.02 (0-0.2) K/uL Immature Gran # (Auto) 0.04 H (0.00-0.02) K/uL Sodium 141 (136-145) mmol/L Potassium 3.6 (3.5-5.1) mmol/L Chloride 107 (98-107) mmol/L Carbon Dioxide 30 (21-32) mmol/L Anion Gap 4.0 (3-11) BUN 10 (7-18) mg/dl Creatinine 0.76 (0.6-1.2) mg/dl Est Cr Clr Drug Dosing 84.3 ml/min Est GFR ( Amer) 104.5 ml/min Est GFR (Non-Af Amer) 90.2 ml/min BUN/Creatinine Ratio 13.4 (10-20) Glucose 81 (70-99) mg/dl Calcium 8.7 (8.5-10.1) mg/dl Magnesium 2.5 H (1.8-2.4) mg/dl Total Bilirubin 0.3 (0.2-1) mg/dl AST 14 L (15-37) U/L ALT 18 (12-78) U/L Alkaline Phosphatase 75 (45-117) U/L Troponin I < 0.015 (0-0.045) ng/ml NT-Pro-B Natriuret Pep 167 (0-900) pg/ml Total Protein 7.0 (6.4-8.2) gm/dl Albumin 3.7 (3.4-5.0) gm/dl Globulin 3.3 (2.5-4.0) gm/dl Albumin/Globulin Ratio 1.1 (0.9-2) COVID-19 Eval Order Covid19 at [facility] SARS-CoV-2 (PCR) (Negative) 01/18/21 Range/Units 15:28 WBC (4.8-10.8) K/uL RBC (4.2-5.4) M/uL Hgb (12.0-16.0) g/dL Hct (37-47) % MCV (80-100) fL MCH (25-34) pg MCHC (32-36) g/dL RDW Std Deviation (36.4-46.3) fL RDW Coeff of Shanika (11.5-14.5) % Plt Count (130-400) K/uL MPV (7.4-10.4) fL Immature Gran % (Auto) % Neut % (Auto) % Lymph % (Auto) % Weber % (Auto) % Eos % (Auto) % Baso % (Auto) % Neut # (Auto) (1.4-6.5) K/uL Lymph # (Auto) (1.2-3.4) K/uL Weber # (Auto) (0.11-0.59) K/uL Eos # (Auto) (0-0.5) K/uL Baso # (Auto) (0-0.2) K/uL Immature Gran # (Auto) (0.00-0.02) K/uL Sodium (136-145) mmol/L Potassium (3.5-5.1) mmol/L Chloride (98-107) mmol/L Carbon Dioxide (21-32) mmol/L Anion Gap (3-11) BUN (7-18) mg/dl Creatinine (0.6-1.2) mg/dl Est Cr Clr Drug Dosing ml/min Est GFR ( Amer) ml/min Est GFR (Non-Af Amer) ml/min BUN/Creatinine Ratio (10-20) Glucose (70-99) mg/dl Calcium (8.5-10.1) mg/dl Magnesium (1.8-2.4) mg/dl Total Bilirubin (0.2-1) mg/dl AST (15-37) U/L ALT (12-78) U/L Alkaline Phosphatase (45-117) U/L Troponin I (0-0.045) ng/ml NT-Pro-B Natriuret Pep (0-900) pg/ml Total Protein (6.4-8.2) gm/dl Albumin (3.4-5.0) gm/dl Globulin (2.5-4.0) gm/dl Albumin/Globulin Ratio (0.9-2) COVID-19 Eval Order SARS-CoV-2 (PCR) NEGATIVE (Negative) Administered Medications Discontinued Medications Albuterol (Albut/Ipratrop 3mg/0.5mg Neb 3 Ml Vial) 3 ml NEB NOW STA Stop: 01/18/21 15:08 Last Admin: 01/18/21 15:15 Dose: 3 ml Documented by: [id number] Methylprednisolone (Methylprednisolone 40 Mg/Ml Vial) 40 mg IV NOW STA Stop: 01/18/21 15:13 Last Admin: 01/18/21 15:39 Dose: 40 mg Documented by: [id number] Imaging Data Radiologist's Impression: Chest X-Ray 01/18/21 15:00 XR chest 1V portable HISTORY: Dyspnea COMPARISON: Chest 01/16/2021. FINDINGS: No focal lung consolidations to suggest pneumonia. No evidence for pulmonary edema. Thoracic spinal stimulator leads are again noted. The heart is normal in size. No pleural fusions. No pneumothorax. IMPRESSION: No acute process. ACT 112: Negative or not required by law. Electronically signed by: Bennett Garcia M.D. 01/18/2021 3:54 PM Discharge Plan Visit Data Chief Complaint: Shortness of Breath/Dyspnea Stated Complaint: SOB, COUGH ED Provider: Lucien Pinto Discharge Problem: SOB (shortness of breath), COPD (chronic obstructive pulmonary disease) Patient Disposition: Admitted As Inpatient Discharge Instructions Interventions: ED Discharge Assessment Last Done: 01/18/21 17:23
[2021-01-18] MEDS: LEVALBUTEROL HCL 1.25 MG/3 ML NEB INH SCH (19:39)
[2021-01-18] MEDS: BUDESONIDE 0.5 MG/2 ML VIAL (PULMICORT) NEB SCH (19:39)
[2021-01-18] MEDS: ENOXAPARIN INJ 40 MG/0.4 ML SYR SQ SCH (20:53)
[2021-01-18] MEDS: methylPREDNISolone 40 MG in SYRINGE 0 ML IV SCH (22:57)
[2021-01-18] MEDS: clonazePAM 0.5 MG TAB PO PRN (22:57)
[2021-01-18 23:29] LABS: Amphetamines+Metham, Urine Neg (Neg); Barbiturates, Urine Neg (Neg); Benzodiazepine, Urine Neg (Neg); Cocaine, Urine Neg (Neg); MDMA (Ecstacy), Urine Neg (Neg); Methadone, Urine Neg (Neg); Opiate, Urine Neg (Neg); Phencyclidine, Urine Neg (Neg)
[2021-01-18 23:56] LABS: Appearance Urine Clear (Clear); Bilirubin Urine Negative (Negative); Blood Urine Negative (Negative); Color Urine Yellow; Glucose Urine UA Negative (Negative); Ketones Urine Trace (Negative); Leukocyte Esterase Urine Negative (Negative); Nitrite Urine Negative (Negative); Protein Urine Negative (Negative); Specific Gravity Urine 1.022 (1.000-1.030); Urobilinogen Urine Negative (Negative)
[2021-01-19] MEDS: LEVALBUTEROL HCL 1.25 MG/3 ML NEB INH SCH ×5 (02:07→19:14)
[2021-01-19] MEDS: methylPREDNISolone 40 MG in SYRINGE 0 ML IV SCH ×4 (04:01→22:11)
[2021-01-19] MEDS: BUDESONIDE 0.5 MG/2 ML VIAL (PULMICORT) NEB SCH (07:29)
[2021-01-19] MEDS: NICOTINE 14 MG/24 HR PATCH TD SCH ×2 (07:30→09:08)
--- NOTE | 2021-01-19 07:34 | Pulmonary Consultation ---
Date of Consultation January 19, 2021 Assessment & Plan (1) Abnormal chest CT: (2) COPD (chronic obstructive pulmonary disease): (3) Lung nodule: (4) Acute exacerbation of chronic obstructive pulmonary disease (COPD): CT chest 01/15/2021 personally reviewed: Right upper lobe peripheral pulmonary nodule, right lower lobe 6 mm pulmonary nodule with surrounding cystic changes Multiple left lower lobe pulmonary nodules Dependent atelectasis bilateral lower lobes Yes no lymphadenopathy --Acute exacerbation of COPD with acute bronchitis Patient is on Dulera at home --> recommend changing it to Anoro Needs PFTs as an outpatient Patient is also on nebulizer budesonide. I am not sure why. COVID-19 PCR negative Continue with Solu-Medrol, continue with nebulizers Continue with antibiotic Follow-up mycoplasma IgM and IgG Follow-up procalcitonin --Multiple pulmonary nodules Have been stable since 2017 Continue to monitor --Abnormal chest CT Patient has some cystic changes in the periphery of the right lower lobe Difficult to say if it is bronchiectasis --Active smoker Advised to quit Plan: Add N-acetylcysteine nebulized twice daily Continue with flutter valve as well as guaifenesin DM [id number] Follow-up sputum culture Follow-up mycoplasma IgM and IgG Follow-up procalcitonin I personally reviewed the records from the clinic. Please note the above document was generated using voice recognition software. It may contain grammatical, syntax or spelling errors.Any formal questions or concerns about the content, text or information contained within the body of this dictation should be directly addressed to the provider for clarification. History of Present Illness Attending Physician: Mariposa Pérez DO History of Present Illness 50-year-old with past medical history of COPD, GERD, migraine presented to the hospital second time in the last 4 days because of cough and shortness of breath. Patient was given tapering steroids as well as azithromycin but it did not help her cough as the reason she presented back to the ER. At the time of examination patient states that she is feeling little bit better compared to when she was out of the hospital She is getting IV steroids right now Patient says that she has been coughing and is unable to bring up any phlegm. Does feel chest congestion. No hemoptysis. Does complain of night sweats in the last couple of days. No fever or chills. Follow up with JUANA Vaughn as an outpatient Social history: Greater than 30 pack years active smoker, no pets at home. No illicit drug use. Allergies Allergy/AdvReac Type Severity Reaction Status Date / Time moxifloxacin [From Avelox] Allergy Mild Rash Verified 01/18/21 15:44 sulfamethoxazole Allergy Mild RASH Verified 01/18/21 15:44 trimethoprim Allergy Mild RASH Verified 01/18/21 15:44 doxycycline AdvReac Intermediate NAUSEA/VOMI Verified 01/18/21 15:44 TING Home Medications Medication Instructions Recorded Confirmed Type clonazepam 0.5 mg tablet (Klonopin) 0.5 mg PO TID PRN 04/30/18 01/18/21 History escitalopram oxalate 20 mg tablet 20 mg PO DAILY 04/30/18 01/18/21 History (Lexapro) estradiol (Estrace) 2 g VAGINAL WK 04/30/18 01/18/21 History ibuprofen 600 mg tablet 600 mg PO QID PRN 04/30/18 01/18/21 History propranolol 10 mg tablet 10 mg PO DAILY 04/30/18 01/18/21 History albuterol sulfate 90 mcg/actuation 2 puffs INHALATION Q4H PRN #1 gm 01/25/19 01/18/21 History aerosol inhaler ondansetron HCl 4 mg tablet 4 mg PO Q8H PRN tab 01/25/19 01/18/21 History fluticasone propionate 50 1 spray INTRANASAL DAILY #18.2 ml 09/20/19 01/18/21 Rx mcg/actuation nasal spray,suspension (Flonase Allergy Relief) aspirin 81 mg tablet,delayed 81 mg PO DAILY 11/22/19 01/18/21 History release (Adult Aspirin Regimen) mometasone-formoterol HFA 200 1 puffs INHALATION BID #13 gm 01/07/20 01/18/21 Rx mcg-5 mcg/actuation aerosol inhaler cyanocobalamin (vitamin B-12) 1,000 mcg IM MONTHLY ml 04/25/20 01/18/21 History 1,000 mcg/mL injection solution budesonide 0.5 mg/2 mL suspension 0.5 mg INHALATION DAILY PRN 10/03/20 01/18/21 History for nebulization (Pulmicort) dexlansoprazole 60 mg 60 mg PO DAILY 10/03/20 01/18/21 History capsule,biphase delayed release (Dexilant) ipratropium bromide 0.02 % 2.5 ml INH Q4H PRN #150 ml 01/10/21 01/18/21 Rx solution for inhalation calcium carbonate 200 mg calcium 200 mg PO TID PRN 01/15/21 01/18/21 History (500 mg) chewable tablet levalbuterol HCl 1.25 mg/3 mL 1.25 mg INH Q4H PRN 01/15/21 01/18/21 History solution for nebulization (Xopenex) pseudoephedrine HCl 60 mg tablet 60 mg PO BID 01/15/21 01/18/21 History azithromycin 250 mg tablet 250 mg PO DAILY 6 Days #4 tab 01/16/21 01/18/21 Rx benzonatate 100 mg capsule 100 mg PO HS PRN #14 cap 01/16/21 01/18/21 Rx (Tessalon Perles) nicotine 21 mg/24 hr daily 21 mg TRANSDERMAL QAM #7 ea 01/16/21 01/18/21 Rx transdermal patch (Nicoderm CQ) prednisone 10 mg tablet 10 mg PO DAILY #30 tab 01/16/21 01/18/21 Rx Patient History Medical History (Updated 01/19/21 @ 15:02 by Kieran Logan MD) Cat scratch fever COPD (chronic obstructive pulmonary disease) Depression Esophagitis GERD (gastroesophageal reflux disease) Lung nodule Surgical History History of cholecystectomy History of endometrial ablation History of lumbar fusion L5-S1 History of tubal ligation Social History Smoking Status: Current every day smoker Tobacco Type: Cigarettes Cigarettes Per Day: 1; Second Hand Exposure: No; Do You Dip or Chew Tobacco: No; Hx Alcohol Use: No Hx Substance Use: No Preferred Language: Korean Communication Ability: Effective Control Operator Flow Coat Required: No Beliefs That Will Affect Care: None Current Living Situation: Family Other Information That Helps Us Care for You: No Feels Safe at Home: Yes Safety Concerns: Feels Safe At This Time Assistive Devices: None Review of Systems Review of Systems: All systems reviewed & are unremarkable except as noted in HPI & below Physical Exam Physical Exam: Constitutional: No acute distress HEENT: EOMI, PERRLA Respiratory system: Decreased air entry bilaterally, no wheeze, rhonchi, mild crackles bilateral lower lobes CVS: S1-S2 positive, no murmurs or gallops Abdomen: Soft, nontender, nondistended, positive bowel sounds x4 Extremities: +2 pulses bilaterally radialis/ dorsalis pedis, no cyanosis, no edema Neuro: Awake alert oriented x3 Psych: Normal mood and affect G/U: No Joyner Skin: no rashes, warm and dry Lymphatic: no cervical or axillary lymphadenopathy Results & Data Results & Data ([facility]) Vital Signs (Past 12 Hours) Vital Signs Temp Pulse Resp BP Pulse Ox 01/19/21 07:29 70 18 95 01/19/21 03:56 72 18 92 01/18/21 22:03 36.5 C 66 16 105/70 94 01/18/21 19:42 68 16 96 01/18/21 15:28 01/18/21 15:28 PG Care Time/CCT Total # of Minutes Spent Total Time Spent with Patient: Total time spent is greater than 50% in coordination of care (as documented) at patient's floor/unit and/or counseling patient: Coding Level of Care Code 03245 Inpt Consult Level [address] R93.89 COPD (chronic obstructive pulmonary disease) J44.9 Lung nodule R91.1 Acute exacerbation of chronic obstructive pulmonary disease (COPD) J44.1 Time Spent (min) 83
[2021-01-19 08:32] LABS: Hematocrit (blood only) 38.2 % (37-47); Hemoglobin 12.9 g/dL (12.0-16.0); Immature Granulocytes # (auto) 0.02 K/uL (0.00-0.02); Immature Granulocytes % (auto) 0.2 %; Lymphocytes # (auto) 0.72 K/uL (1.2-3.4); Mean Corpuscular Hemoglobin 31.6 pg (25-34); Mean Corpuscular Hgb Conc 33.8 g/dL (32-36); Mean Corpuscular Volume 93.6 fL (80-100); Mean Platelet Volume 9.5 fL (7.4-10.4); Monocytes # (auto) 0.09 K/uL (0.11-0.59); Neutrophils # (auto) 8.13 K/uL (1.4-6.5); Neutrophils % (auto) 90.8 %; Platelet Count 290 K/uL (130-400); RDW Coefficient of Variation 12.9 % (11.5-14.5); RDW Standard Deviation 44.6 fL (36.4-46.3); Red Blood Count 4.08 M/uL (4.2-5.4); White Blood Count 8.96 K/uL (4.8-10.8)
[2021-01-19] MEDS ORDERED: NICOTINE 21 MG/24 HR TDSY TD SCH (09:00)
[2021-01-19] MEDS: FLUTICASONE/VILANTEROL 100/25MCG 14 PUFFS/INHALER INH SCH (09:05)
[2021-01-19] MEDS: ESCITALOPRAM OXALATE 20 MG TAB PO SCH (09:06)
[2021-01-19] MEDS: PROPRANOLOL HCL 10 MG TAB PO SCH (09:07)
[2021-01-19] MEDS: ASPIRIN 81 MG ECTAB PO SCH (09:07)
[2021-01-19] MEDS: PANTOprazole 40 MG TAB PO SCH (09:07)
[2021-01-19] MEDS: guaiFENesin/DEXTROM SYRUP 100MG/10MG 5ML UDC PO SCH ×3 (09:08→20:22)
[2021-01-19] MEDS: AZITHROMYCIN 250 MG TAB PO SCH (09:10)
[2021-01-19 09:12] LABS: BUN Creatinine Ratio 13.6 (10-20); Calcium 8.4 mg/dl (8.5-10.1); Creatinine Clr Calc Pharmacy 82.2 ml/min; Est GFR (African American) 111.6 ml/min; Est GFR (Non-African American) 96.3 ml/min; Magnesium 2.3 mg/dl (1.8-2.4); Potassium 3.7 mmol/L (3.5-5.1)
[2021-01-19] MEDS: FLUTICASONE PROPIONATE NA SPR 16 GM BTL SCH (09:12)
[2021-01-19] MEDS: ACETYLCYSTEINE 20% INHAL SOLN 4ML ***DISPENSED BY RESP. INH SCH ×2 (13:15→19:13)
--- NOTE | 2021-01-19 13:17 | Hospitalist Progress Note ---
Date of Service January 19, 2021 Assessment & Plan (1) Acute bronchitis: Plan: Physical exam and cough consistent with bronchitis. With history of bronchiectasis in the past. Not improving with outpatient treatment as well as overnight stay in the hospital 2 days prior to this admission. Starting to feel better with less cough with IV steroids since admission this time - Continue with IV Solu-Medrol -Continue azithromycin - Continue levalbuterol scheduled q6 hours with albuterol PRN -Appreciate pulmonary consultation-added acetylcysteine nebs twice daily, flutter valve, and Mucinex - Continue Flonase- held pseudoephedrine -We will await pulmonary consultation to see if we will need bronchoscopy -Fortunately not requiring any oxygen (2) Acute exacerbation of chronic obstructive pulmonary disease (COPD): Plan: As above- not on oxygen (3) GERD (gastroesophageal reflux disease): Plan: Continue PPI (4) Tobacco use disorder: Plan: Continue nicotine patch Encourage cessation (5) Asthma: Plan: As above (6) Depression: Plan: Continue Lexapro Continue propranolol Plan: DVT prophylaxis with Lovenox SQ Disposition-continued stay Admission and Anticipated Discharge Date Admission Date: January 18, 2021 Subjective Patient still with persistent cough but not able to cough up her mucus. No pain anywhere, no shortness of breath. No bowel movement in 2 days. She is asking if she will need a bronchoscopy as she has had one a few years back. She is eating and drinking. Review of Systems Review of Systems: All systems reviewed & are unremarkable except as noted in HPI & below Physical Exam Constitutional: WD/WN, vitals as above Eyes: + anicteric sclerae Neck: trachea midline, no thyromegaly Respiratory: normal respiratory effort and + cough Auscultation: + wheezes (bilat exp middle lung griffin) Cardiovascular: RRR, no murmur, no edema Chest (Breasts): Chest: normal inspection of chest Gastrointestinal (Abdomen): normal bowel sounds, soft, nontender, no hepatosplenomegaly Musculoskeletal: Extremities: extremities normal to inspection; no cyanosis and no clubbing Skin: no rashes, warm and dry Neurologic: moves all extremities and awake; no focal motor deficits Psychiatric: A+Ox3, euthymic affect Lymphatic: no lymphedema Results & Data Results & Data ([facility]) Vital Signs (Past 12 Hours) Vital Signs Temp Pulse Pulse Resp BP Pulse Ox 01/19/21 07:45 36.7 C 79 18 103/64 97 01/19/21 07:29 70 18 95 01/19/21 03:56 72 18 92 Laboratory Results 01/19/21 01/19/21 01/18/21 Range/Units 08:16 08:16 22:05 WBC 8.96 (4.8-10.8) K/uL RBC 4.08 L (4.2-5.4) M/uL Hgb 12.9 (12.0-16.0) g/dL Hct 38.2 (37-47) % MCV 93.6 (80-100) fL MCH 31.6 (25-34) pg MCHC 33.8 (32-36) g/dL RDW Std Deviation 44.6 (36.4-46.3) fL RDW Coeff of Shanika 12.9 (11.5-14.5) % Plt Count 290 (130-400) K/uL MPV 9.5 (7.4-10.4) fL Immature Gran % (Auto) 0.2 % Neut % (Auto) 90.8 % Lymph % (Auto) 8.0 % Coke % (Auto) 1.0 % Eos % (Auto) 0.0 % Baso % (Auto) 0.0 % Neut # (Auto) 8.13 H (1.4-6.5) K/uL Lymph # (Auto) 0.72 L (1.2-3.4) K/uL Coke # (Auto) 0.09 L (0.11-0.59) K/uL Eos # (Auto) 0.00 (0-0.5) K/uL Baso # (Auto) 0.00 (0-0.2) K/uL Immature Gran # (Auto) 0.02 (0.00-0.02) K/uL Sodium 138 (136-145) mmol/L Potassium 3.7 (3.5-5.1) mmol/L Chloride 107 (98-107) mmol/L Carbon Dioxide 25 (21-32) mmol/L Anion Gap 6.0 (3-11) BUN 10 (7-18) mg/dl Creatinine 0.72 (0.6-1.2) mg/dl Est Cr Clr Drug Dosing 82.2 ml/min Est GFR ( Amer) 111.6 ml/min Est GFR (Non-Af Amer) 96.3 ml/min BUN/Creatinine Ratio 13.6 (10-20) Glucose 150 H (70-99) mg/dl Calcium 8.4 L (8.5-10.1) mg/dl Magnesium 2.3 (1.8-2.4) mg/dl Total Bilirubin (0.2-1) mg/dl AST (15-37) U/L ALT (12-78) U/L Alkaline Phosphatase (45-117) U/L Troponin I (0-0.045) ng/ml NT-Pro-B Natriuret Pep (0-900) pg/ml Total Protein (6.4-8.2) gm/dl Albumin (3.4-5.0) gm/dl Globulin (2.5-4.0) gm/dl Albumin/Globulin Ratio (0.9-2) Urine Color Urine Appearance (Clear) Urine pH (4.5-7.5) Ur Specific Roosevelt (1.000-1.030) Urine Protein (Negative) Urine Glucose (UA) (Negative) Urine Ketones (Negative) Urine Blood (Negative) Urine Nitrite (Negative) Urine Bilirubin (Negative) Urine Urobilinogen (Negative) Ur Leukocyte Esterase (Negative) Urine Opiates Screen Neg (Neg) Ur Methadone, Qual Neg (Neg) Urine Barbiturates Neg (Neg) Ur Phencyclidine (PCP) Neg (Neg) U Amphetamin/Meth Scrn Neg (Neg) MDMA (Ecstasy) Screen Neg (Neg) U Benzodiazepines Scrn Neg (Neg) Ur Cocaine Metabolite Neg (Neg) U Marijuana (THC) Screen Neg (Neg) COVID-19 Eval Order SARS-CoV-2 (PCR) (Negative) 01/18/21 01/18/21 01/18/21 Range/Units 22:05 15:28 15:28 WBC (4.8-10.8) K/uL RBC (4.2-5.4) M/uL Hgb (12.0-16.0) g/dL Hct (37-47) % MCV (80-100) fL MCH (25-34) pg MCHC (32-36) g/dL RDW Std Deviation (36.4-46.3) fL RDW Coeff of Shanika (11.5-14.5) % Plt Count (130-400) K/uL MPV (7.4-10.4) fL Immature Gran % (Auto) % Neut % (Auto) % Lymph % (Auto) % Coke % (Auto) % Eos % (Auto) % Baso % (Auto) % Neut # (Auto) (1.4-6.5) K/uL Lymph # (Auto) (1.2-3.4) K/uL Coke # (Auto) (0.11-0.59) K/uL Eos # (Auto) (0-0.5) K/uL Baso # (Auto) (0-0.2) K/uL Immature Gran # (Auto) (0.00-0.02) K/uL Sodium (136-145) mmol/L Potassium (3.5-5.1) mmol/L Chloride (98-107) mmol/L Carbon Dioxide (21-32) mmol/L Anion Gap (3-11) BUN (7-18) mg/dl Creatinine (0.6-1.2) mg/dl Est Cr Clr Drug Dosing ml/min Est GFR ( Amer) ml/min Est GFR (Non-Af Amer) ml/min BUN/Creatinine Ratio (10-20) Glucose (70-99) mg/dl Calcium (8.5-10.1) mg/dl Magnesium (1.8-2.4) mg/dl Total Bilirubin (0.2-1) mg/dl AST (15-37) U/L ALT (12-78) U/L Alkaline Phosphatase (45-117) U/L Troponin I (0-0.045) ng/ml NT-Pro-B Natriuret Pep (0-900) pg/ml Total Protein (6.4-8.2) gm/dl Albumin (3.4-5.0) gm/dl Globulin (2.5-4.0) gm/dl Albumin/Globulin Ratio (0.9-2) Urine Color Yellow Urine Appearance Clear (Clear) Urine pH 6.0 (4.5-7.5) Ur Specific Roosevelt 1.022 (1.000-1.030) Urine Protein Negative (Negative) Urine Glucose (UA) Negative (Negative) Urine Ketones Trace H (Negative) Urine Blood Negative (Negative) Urine Nitrite Negative (Negative) Urine Bilirubin Negative (Negative) Urine Urobilinogen Negative (Negative) Ur Leukocyte Esterase Negative (Negative) Urine Opiates Screen (Neg) Ur Methadone, Qual (Neg) Urine Barbiturates (Neg) Ur Phencyclidine (PCP) (Neg) U Amphetamin/Meth Scrn (Neg) MDMA (Ecstasy) Screen (Neg) U Benzodiazepines Scrn (Neg) Ur Cocaine Metabolite (Neg) U Marijuana (THC) Screen (Neg) COVID-19 Eval Order Covid19 at [facility] SARS-CoV-2 (PCR) NEGATIVE (Negative) 01/18/21 01/18/21 Range/Units 15:28 15:28 WBC 11.55 H (4.8-10.8) K/uL RBC 4.12 L (4.2-5.4) M/uL Hgb 13.1 (12.0-16.0) g/dL Hct 39.2 (37-47) % MCV 95.1 (80-100) fL MCH 31.8 (25-34) pg MCHC 33.4 (32-36) g/dL RDW Std Deviation 46.7 H (36.4-46.3) fL RDW Coeff of Shanika 13.3 (11.5-14.5) % Plt Count 323 (130-400) K/uL MPV 9.6 (7.4-10.4) fL Immature Gran % (Auto) 0.3 % Neut % (Auto) 58.2 % Lymph % (Auto) 33.4 % Coke % (Auto) 7.2 % Eos % (Auto) 0.7 % Baso % (Auto) 0.2 % Neut # (Auto) 6.72 H (1.4-6.5) K/uL Lymph # (Auto) 3.86 H (1.2-3.4) K/uL Coke # (Auto) 0.83 H (0.11-0.59) K/uL Eos # (Auto) 0.08 (0-0.5) K/uL Baso # (Auto) 0.02 (0-0.2) K/uL Immature Gran # (Auto) 0.04 H (0.00-0.02) K/uL Sodium 141 (136-145) mmol/L Potassium 3.6 (3.5-5.1) mmol/L Chloride 107 (98-107) mmol/L Carbon Dioxide 30 (21-32) mmol/L Anion Gap 4.0 (3-11) BUN 10 (7-18) mg/dl Creatinine 0.76 (0.6-1.2) mg/dl Est Cr Clr Drug Dosing 84.3 ml/min Est GFR ( Amer) 104.5 ml/min Est GFR (Non-Af Amer) 90.2 ml/min BUN/Creatinine Ratio 13.4 (10-20) Glucose 81 (70-99) mg/dl Calcium 8.7 (8.5-10.1) mg/dl Magnesium 2.5 H (1.8-2.4) mg/dl Total Bilirubin 0.3 (0.2-1) mg/dl AST 14 L (15-37) U/L ALT 18 (12-78) U/L Alkaline Phosphatase 75 (45-117) U/L Troponin I < 0.015 (0-0.045) ng/ml NT-Pro-B Natriuret Pep 167 (0-900) pg/ml Total Protein 7.0 (6.4-8.2) gm/dl Albumin 3.7 (3.4-5.0) gm/dl Globulin 3.3 (2.5-4.0) gm/dl Albumin/Globulin Ratio 1.1 (0.9-2) Urine Color Urine Appearance (Clear) Urine pH (4.5-7.5) Ur Specific Roosevelt (1.000-1.030) Urine Protein (Negative) Urine Glucose (UA) (Negative) Urine Ketones (Negative) Urine Blood (Negative) Urine Nitrite (Negative) Urine Bilirubin (Negative) Urine Urobilinogen (Negative) Ur Leukocyte Esterase (Negative) Urine Opiates Screen (Neg) Ur Methadone, Qual (Neg) Urine Barbiturates (Neg) Ur Phencyclidine (PCP) (Neg) U Amphetamin/Meth Scrn (Neg) MDMA (Ecstasy) Screen (Neg) U Benzodiazepines Scrn (Neg) Ur Cocaine Metabolite (Neg) U Marijuana (THC) Screen (Neg) COVID-19 Eval Order SARS-CoV-2 (PCR) (Negative) PG Care Time/CCT Total # of Minutes Spent Total Time Spent with Patient: Total time spent is greater than 50% in coordination of care (as documented) at patient's floor/unit and/or counseling patient: Coding Level of Care Code 25787 Subseq Hosp Care Lvl 2 Diagnoses Acute bronchitis J20.9 Bronchitis organism: unspecified organism Acute exacerbation of chronic obstructive pulmonary disease (COPD) J44.1 GERD (gastroesophageal reflux disease) K21.9 Tobacco use disorder F17.200 Asthma J45.909 Depression F32.9 (1) Acute bronchitis Bronchitis organism: unspecified organism Qualified Code(s): J20.9 - Acute bronchitis, unspecified
[2021-01-19] MEDS: ENOXAPARIN INJ 40 MG/0.4 ML SYR SQ SCH (20:21)
[2021-01-19] MEDS ORDERED: POLYETHYLENE (MIRALAX) 17 GM PACK PO PRN (20:39)
[2021-01-19] MEDS: clonazePAM 0.5 MG TAB PO PRN (23:16)
[2021-01-20] MEDS ORDERED: clonazePAM 0.5 MG TAB PO STA (00:02)
[2021-01-20] MEDS: MELATONIN 3 MG TAB PO PRN ×2 (00:31→22:45)
[2021-01-20] MEDS: LEVALBUTEROL HCL 1.25 MG/3 ML NEB INH SCH ×4 (01:11→19:21)
[2021-01-20] MEDS: methylPREDNISolone 40 MG in SYRINGE 0 ML IV SCH ×2 (04:03→17:14)
[2021-01-20] MEDS: guaiFENesin/DEXTROM SYRUP 100MG/10MG 5ML UDC PO SCH ×4 (04:03→20:02)
[2021-01-20 06:13] LABS: Hematocrit (blood only) 36.6 % (37-47); Hemoglobin 12.3 g/dL (12.0-16.0); Immature Granulocytes # (auto) 0.05 K/uL (0.00-0.02); Immature Granulocytes % (auto) 0.4 %; Lymphocytes % (auto) 6.4 %; Mean Corpuscular Hemoglobin 31.5 pg (25-34); Mean Corpuscular Hgb Conc 33.6 g/dL (32-36); Mean Corpuscular Volume 93.8 fL (80-100); Monocytes # (auto) 0.38 K/uL (0.11-0.59); Monocytes % (auto) 2.7 %; Neutrophils # (auto) 12.81 K/uL (1.4-6.5); Neutrophils % (auto) 90.5 %; Platelet Count 315 K/uL (130-400); RDW Coefficient of Variation 13.2 % (11.5-14.5); RDW Standard Deviation 45.4 fL (36.4-46.3); White Blood Count 14.14 K/uL (4.8-10.8)
[2021-01-20 07:11] LABS: BUN Creatinine Ratio 19.4 (10-20); Calcium 8.3 mg/dl (8.5-10.1); Creatinine Clr Calc Pharmacy 105.7 ml/min; Est GFR (African American) 124.2 ml/min; Est GFR (Non-African American) 107.2 ml/min; Magnesium 2.3 mg/dl (1.8-2.4); Potassium 3.8 mmol/L (3.5-5.1)
[2021-01-20] MEDS: ACETYLCYSTEINE 20% INHAL SOLN 4ML ***DISPENSED BY RESP. INH SCH ×2 (07:16→19:22)
--- NOTE | 2021-01-20 08:47 | Pulmonology Progress Note ---
Date of Service January 20, 2021 Assessment & Plan (1) Abnormal chest CT: (2) COPD (chronic obstructive pulmonary disease): (3) Lung nodule: (4) Acute exacerbation of chronic obstructive pulmonary disease (COPD): Plan: CT chest 01/15/2021 personally reviewed: Right upper lobe peripheral pulmonary nodule, right lower lobe 6 mm pulmonary nodule with surrounding cystic changes Multiple left lower lobe pulmonary nodules Dependent atelectasis bilateral lower lobes Yes no lymphadenopathy --Acute exacerbation of COPD with acute bronchitis Patient is on Dulera at home --> recommend changing it to Anoro Needs PFTs as an outpatient Patient is also on nebulizer budesonide. I am not sure why. COVID-19 PCR negative Procalcitonin negative Continue with Solu-Medrol, continue with nebulizers Continue with antibiotic Follow-up mycoplasma IgM and IgG --Multiple pulmonary nodules Have been stable since 2017 Continue to monitor --Abnormal chest CT Patient has some cystic changes in the periphery of the right lower lobe Difficult to say if it is bronchiectasis --Active smoker Advised to quit Plan: Solu-Medrol decreased to 40 mg every 12 Tomorrow transition to p.o. prednisone 40 mg for 3 days followed by 24 2 Continue N-acetylcysteine nebulized twice daily. Can consider sending her on this nebulizer at home as well Continue with flutter valve as well as guaifenesin DM [id number] Follow-up sputum culture Please note the above document was generated using voice recognition software. It may contain grammatical, syntax or spelling errors.Any formal questions or concerns about the content, text or information contained within the body of this dictation should be directly addressed to the provider for clarification. Admission and Anticipated Discharge Date Admission Date: January 18, 2021 Subjective Patient seen and examined at bedside. No acute distress, no adverse events overnight. Patient says her cough has improved compared to before She does get bouts of coughing. Still not able to bring up phlegm. I did give her [id number] antitussive medication but she is not taking that She is supposed to be using flutter valve but also is not using it as needed. I personally asked her to do the flutter valve in front of me and explained the correct technique. Review of Systems Review of Systems: All systems reviewed & are unremarkable except as noted in Subjective Physical Exam Physical Exam: Constitutional: No acute distress HEENT: EOMI, PERRLA Respiratory system: Decreased air entry bilaterally, rhonchi, mild crackles bilateral lower lobes, minimal wheeze CVS: S1-S2 positive, no murmurs or gallops Abdomen: Soft, nontender, nondistended, positive bowel sounds x4 Extremities: +2 pulses bilaterally radialis/ dorsalis pedis, no cyanosis, no edema Neuro: Awake alert oriented x3 Psych: Normal mood and affect G/U: No Joyner Skin: no rashes, warm and dry Lymphatic: no cervical or axillary lymphadenopathy Results & Data Results & Data ([facility]) Vital Signs (Past 12 Hours) Vital Signs Temp Pulse Pulse Resp BP Pulse Ox 01/20/21 07:35 36.6 C 72 18 134/85 95 01/20/21 07:18 84 18 96 01/19/21 22:56 36.6 C 79 18 109/73 94 01/20/21 05:29 01/20/21 05:29 PG Care Time/CCT Total # of Minutes Spent Total Time Spent with Patient: Total time spent is greater than 50% in coordination of care (as documented) at patient's floor/unit and/or counseling patient: Coding Level of Care Code 35437 Subseq Hosp Care Lvl [address] R93.89 COPD (chronic obstructive pulmonary disease) J44.9 Lung nodule R91.1 Acute exacerbation of chronic obstructive pulmonary disease (COPD) J44.1
--- NOTE | 2021-01-20 10:04 | Hospitalist Progress Note ---
Date of Service January 20, 2021 Assessment & Plan (1) Acute bronchitis: Plan: Physical exam and cough consistent with bronchitis. With history of bronchiectasis in the past. Not improving with outpatient treatment as well as overnight stay in the hospital 2 days prior to this admission. Starting to feel better with less cough with IV steroids since admission this time - Continue with IV Solu-Medrol -Continue azithromycin - Continue levalbuterol scheduled q6 hours with albuterol PRN -Appreciate pulmonary consultation-added acetylcysteine nebs twice daily, flutter valve, and Mucinex - Continue Flonase- held pseudoephedrine -Fortunately not requiring any oxygen (2) Acute exacerbation of chronic obstructive pulmonary disease (COPD): Plan: As above- not on oxygen (3) GERD (gastroesophageal reflux disease): Plan: Continue PPI (4) Tobacco use disorder: Plan: Continue nicotine patch Encourage cessation (5) Asthma: Plan: As above (6) Depression: Plan: Continue Lexapro Continue propranolol Plan: DVT prophylaxis with Lovenox SQ Disposition-continued stay Admission and Anticipated Discharge Date Admission Date: January 18, 2021 Subjective Continued cough and shortness of breath mainly on minimal exertion. She reports this is much worse in her house than outside. 21mg nicotine patch previously too much on last discharge. Review of Systems Review of Systems: All systems reviewed & are unremarkable except as noted in HPI & below Physical Exam Constitutional: WD/WN, vitals as above Respiratory: normal respiratory effort and + cough; no respiratory distress Auscultation: + wheezes (posteriorly expiratory throughout) Cardiovascular: RRR, no murmur, no edema Gastrointestinal (Abdomen): normal bowel sounds, soft, nontender, no hepatosplenomegaly Results & Data Results & Data ([facility]) Vital Signs (Past 12 Hours) Vital Signs Temp Pulse Pulse Resp BP Pulse Ox 01/20/21 07:35 36.6 C 72 18 134/85 95 01/20/21 07:18 84 18 96 01/19/21 22:56 36.6 C 79 18 109/73 94 PG Care Time/CCT Total # of Minutes Spent Total Time Spent with Patient: Total time spent is greater than 50% in coordination of care (as documented) at patient's floor/unit and/or counseling patient: Coding Level of Care Code 96958 Subseq Hosp Care Lvl 2 Diagnoses Acute bronchitis J20.9 Bronchitis organism: unspecified organism Acute exacerbation of chronic obstructive pulmonary disease (COPD) J44.1 GERD (gastroesophageal reflux disease) K21.9 Tobacco use disorder F17.200 Asthma J45.909 Depression F32.9 (1) Acute bronchitis Bronchitis organism: unspecified organism Qualified Code(s): J20.9 - Acute bronchitis, unspecified
[2021-01-20] MEDS: FLUTICASONE PROPIONATE NA SPR 16 GM BTL SCH (10:40)
[2021-01-20] MEDS: AZITHROMYCIN 250 MG TAB PO SCH (10:41)
[2021-01-20] MEDS: PANTOprazole 40 MG TAB PO SCH (10:41)
[2021-01-20] MEDS: ESCITALOPRAM OXALATE 20 MG TAB PO SCH (10:42)
[2021-01-20] MEDS: ASPIRIN 81 MG ECTAB PO SCH (10:42)
[2021-01-20] MEDS: FLUTICASONE/VILANTEROL 100/25MCG 14 PUFFS/INHALER INH SCH (10:43)
[2021-01-20] MEDS: NICOTINE 14 MG/24 HR PATCH TD SCH (10:43)
[2021-01-20] MEDS: PROPRANOLOL HCL 10 MG TAB PO SCH (10:43)
[2021-01-20] MEDS: ENOXAPARIN INJ 40 MG/0.4 ML SYR SQ SCH (20:02)
[2021-01-20] MEDS: clonazePAM 0.5 MG TAB PO PRN (22:45)
[2021-01-21] MEDS: LEVALBUTEROL HCL 1.25 MG/3 ML NEB INH SCH ×3 (01:39→13:14)
[2021-01-21] MEDS: methylPREDNISolone 40 MG in SYRINGE 0 ML IV SCH (04:05)
[2021-01-21] MEDS: guaiFENesin/DEXTROM SYRUP 100MG/10MG 5ML UDC PO SCH ×2 (04:05→09:02)
[2021-01-21] MEDS: NICOTINE 14 MG/24 HR PATCH TD SCH (04:07)
[2021-01-21 05:59] LABS: Basophils # (auto) 0.01 K/uL (0-0.2); Basophils % (auto) 0.1 %; Hematocrit (blood only) 39.3 % (37-47); Hemoglobin 12.9 g/dL (12.0-16.0); Immature Granulocytes # (auto) 0.11 K/uL (0.00-0.02); Lymphocytes # (auto) 1.49 K/uL (1.2-3.4); Lymphocytes % (auto) 13.7 %; Mean Corpuscular Hemoglobin 31.5 pg (25-34); Mean Corpuscular Hgb Conc 32.8 g/dL (32-36); Mean Corpuscular Volume 96.1 fL (80-100); Mean Platelet Volume 9.8 fL (7.4-10.4); Monocytes # (auto) 0.54 K/uL (0.11-0.59); Neutrophils # (auto) 8.73 K/uL (1.4-6.5); Neutrophils % (auto) 80.2 %; Platelet Count 350 K/uL (130-400); RDW Coefficient of Variation 13.2 % (11.5-14.5); RDW Standard Deviation 46.3 fL (36.4-46.3); Red Blood Count 4.09 M/uL (4.2-5.4); White Blood Count 10.88 K/uL (4.8-10.8)
[2021-01-21 06:31] LABS: Calcium 8.6 mg/dl (8.5-10.1); Creatinine Clr Calc Pharmacy 97.1 ml/min; Est GFR (African American) 120.8 ml/min; Est GFR (Non-African American) 104.2 ml/min; Magnesium 2.3 mg/dl (1.8-2.4); Potassium 3.9 mmol/L (3.5-5.1)
[2021-01-21] MEDS: ACETYLCYSTEINE 20% INHAL SOLN 4ML ***DISPENSED BY RESP. INH SCH (07:17)
[2021-01-21] MEDS: ASPIRIN 81 MG ECTAB PO SCH (09:01)
[2021-01-21] MEDS: ESCITALOPRAM OXALATE 20 MG TAB PO SCH (09:02)
[2021-01-21] MEDS: PANTOprazole 40 MG TAB PO SCH (09:02)
[2021-01-21] MEDS: FLUTICASONE/VILANTEROL 100/25MCG 14 PUFFS/INHALER INH SCH (09:02)
[2021-01-21] MEDS: PROPRANOLOL HCL 10 MG TAB PO SCH (09:02)
[2021-01-21] MEDS: FLUTICASONE PROPIONATE NA SPR 16 GM BTL SCH (09:02)
--- NOTE | 2021-01-21 10:39 | Pulmonology Progress Note ---
Date of Service January 21, 2021 Assessment & Plan (1) Abnormal chest CT: (2) COPD (chronic obstructive pulmonary disease): (3) Lung nodule: (4) Acute exacerbation of chronic obstructive pulmonary disease (COPD): Plan: CT chest 01/15/2021 personally reviewed: Right upper lobe peripheral pulmonary nodule, right lower lobe 6 mm pulmonary nodule with surrounding cystic changes Multiple left lower lobe pulmonary nodules Dependent atelectasis bilateral lower lobes Yes no lymphadenopathy --Acute exacerbation of COPD with acute bronchitis Patient is on Dulera at home --> recommend changing it to Anoro Needs PFTs as an outpatient Patient is also on nebulizer budesonide. I am not sure why. COVID-19 PCR negative Procalcitonin negative Continue with Solu-Medrol, continue with nebulizers Continue with antibiotic Follow-up mycoplasma IgM and IgG --Multiple pulmonary nodules Have been stable since 2017 Continue to monitor --Abnormal chest CT Patient has some cystic changes in the periphery of the right lower lobe Difficult to say if it is bronchiectasis --Active smoker Advised to quit Plan: Okay to discharge on prednisone 40 mg for 3 days followed by 20 mg for 3 days Would recommend using flutter valve as well as guaifenesin DM [id number] for the next couple of days. Case was discussed with Dr. Benz Please note the above document was generated using voice recognition software. It may contain grammatical, syntax or spelling errors.Any formal questions or concerns about the content, text or information contained within the body of this dictation should be directly addressed to the provider for clarification. Admission and Anticipated Discharge Date Admission Date: January 18, 2021 Subjective Patient seen and examined at bedside. No acute distress, no adverse events overnight. Patient has been using flutter valve as advised yesterday along with guaifenesin DM [id number] Says that she is feeling better. Occasional cough heard in the morning. Phlegm is loosening up. Denies any chest pain, no headache, no nausea, no vomiting. Review of Systems Review of Systems: All systems reviewed & are unremarkable except as noted in Subjective Physical Exam Physical Exam: Constitutional: No acute distress HEENT: EOMI, PERRLA Respiratory system: Decreased air entry bilaterally, rhonchi, mild crackles bilateral lower lobes, no wheeze CVS: S1-S2 positive, no murmurs or gallops Abdomen: Soft, nontender, nondistended, positive bowel sounds x4 Extremities: +2 pulses bilaterally radialis/ dorsalis pedis, no cyanosis, no edema Neuro: Awake alert oriented x3 Psych: Normal mood and affect G/U: No Joyner Skin: no rashes, warm and dry Lymphatic: no cervical or axillary lymphadenopathy Results & Data Results & Data ([facility]) Vital Signs (Past 12 Hours) Vital Signs Temp Pulse Pulse Resp BP Pulse Ox 01/21/21 08:07 36.7 C 80 19 132/89 98 01/21/21 07:17 86 18 94 01/20/21 23:06 36.5 C 66 17 98/60 L 93 01/21/21 05:26 01/21/21 05:26 PG Care Time/CCT Total # of Minutes Spent Total Time Spent with Patient: Total time spent is greater than 50% in coordination of care (as documented) at patient's floor/unit and/or counseling patient: Coding Level of Care Code 83095 Subseq Hosp Care Lvl [address] R93.89 COPD (chronic obstructive pulmonary disease) J44.9 Lung nodule R91.1 Acute exacerbation of chronic obstructive pulmonary disease (COPD) J44.1
--- NOTE | 2021-01-21 12:33 | Discharge Summary ---
Date of Service January 21, 2021 Admission HPI Per Admitting Provider 50 YOF with past medical history of: COPD, GERD, smoker (currently trying to stop with nicotene patch), bronchiectasis, migraine, TIA, hiatal hernia. Patient returns to the [facility] today for continued cough and dyspnea. She was originally admitted on had a negative CTA of her chest for PE, she was admitted for COPD exacerbation and was subsequently discharged on with AZT, 40mg oral Prednisone and her regular home inhalers to include Levalbuterol, Ipatropium and Albuterol, and Pulmicort. She continues to have deep raspy cough and dyspnea which is preventing her from lying flat or getting any sleep. She normally has a productive cough with thick mucuous, however she is not bringing up any mucous at this time with her coughing. She used her nebulizer 4 times throughout the night last night as well as her inhalers and could not get her symptoms under controlled. Patient was seen aproximatly 2 weeks ago for symptoms of congestion with sinus pain at urgent care as well as outside hospital she was given a course of Augmentin first and when she didn't improve this was changed to Docycyline. She was started on the Azithromycin upon admission on the 16 of January. She states that she does have some periods of hot and then cold feeling but can not endorse she actually had any fevers. Her chest feels tight but without pain. Her chest xrays and CTA of the chest do not reveal any consolidative process or pulmonary edema. Thickening of the bronhioles noted. Patient will be admitted continue with IV solumederol, bronchodilator therapy, will hold her anticholinergics with drying of her secretions and continue ICS with Pulmicort as well as her Azithromycin. Will add Robitussin for her cough. Pulmonary consult will be placed. Patient has had her COVID vaccine and COVID test is negative on admission. Principal Diagnosis Acute bronchitis (COPD exacerbation) Discharge Exam Constitutional WD/WN, vitals as above Respiratory normal respiratory effort and + cough; no respiratory distress Auscultation: + wheezes (posteriorly expiratory throughout) Cardiovascular RRR, no murmur, no edema Gastrointestinal (Abdomen) normal bowel sounds, soft, nontender, no hepatosplenomegaly Discharge Data Allergies Allergy/AdvReac Type Severity Reaction Status Date / Time moxifloxacin [From Avelox] Allergy Mild Rash Verified 01/18/21 15:44 sulfamethoxazole Allergy Mild RASH Verified 01/18/21 15:44 trimethoprim Allergy Mild RASH Verified 01/18/21 15:44 doxycycline AdvReac Intermediate NAUSEA/VOMI Verified 01/18/21 15:44 TING Consultations 01/18/21 15:13 ED Decision to Admit Stat 01/18/21 17:53 Consult Pulmonology Routine Hospital Course (1) Acute bronchitis: Myesha Jacobs is a 50 year old female admitted to [facility] from January 16-Jan 21, 2021 due to shortness of breath. She was treated with intravenous steroids and nebulizer treatments with some mild improvement. On review by pulmonology recommended discharge with a tapering course of prednisone as prescribed over the next 6 days. Continue on albuterol/ipratropium nebulizer regularly four times a day for the next 2 days then as needed after this. Acetylcysteine has also been prescribed per pulmonology recommendations. She has not required oxygen throughout her admission but is significantly wheezy. Azithromycin discontinued as completed 5 day course of this. Main exacerbating factor likely smoke in her home. She has stopped smoking recently and prescribed a nicotine patch on discharge to continue to help with this. (2) Acute exacerbation of chronic obstructive pulmonary disease (COPD): (3) GERD (gastroesophageal reflux disease): (4) Tobacco use disorder: (5) Asthma: (6) Depression: Total Time Total Time Spent Total Time Spent (In Minutes): 50 Discharge Plan Discharge Items Patient Disposition: Home - Self-Care Reason For Visit: COPD/BRONCHITIS Discharge Diagnosis: Acute bronchitis (COPD exacerbation) Activity: As commented below Activity Comment: Gradual increase as able Lifting: Gradually increase as tolerated Non-emergency contact: Senior Sales Consultant Call non-emergency contact if: you have any medication questions and your symptoms worsen Follow-up/Referrals: Quentin Villasenor PA-C [Physician Pocket Grinder Operator] - (1-2 week follow up) Gabriela Pérez MD [Primary Care Provider] - Diet: Regular Addtl Attending Provider Instructions: You were admitted to [facility] from January 16-Jan 21, 2021 due to shortness of breath. You were treated with intravenous steroids and nebulizer treatments with improvement. On review by pulmonology recommended discharge with a tapering course of prednisone as prescribed over the next 6 days. If you feel worse while tapering steroids please call your board handler for ongoing advice. Continue on albuterol/ipratropium nebulizer regularly four times a day for the next 2 days then as needed after this. Acetylcysteine has also been prescribed to help break up the mucus to make it easier to cough Congratulations on stopping smoking. Continue to abstain from cigarettes. Nicotine patch has been prescribed to help with this. Kind regards, Dr Filipe Benz Pending Studies at Discharge: Yes Stand-Alone Forms: My [facility] [address] [place], Work/School Release, Smoking Cessation Medications and DC Order Prescriptions: New nicotine 7 mg/24 hr Patch 24 Hour 14 mg transdermal QAM Qty: 14 RF: 0 acetylcysteine 200 mg/mL (20 %) Solution 5 ml inhalation Q12R PRN (Reason: cough) Qty: 90 RF: 0 dextromethorphan-guaifenesin 10-100 mg/5 mL Syrup 5 ml PO Q6H PRN (Reason: cough) Qty: 237 RF: 0 prednisone 20 mg tablet See Rx Instructions .ROUTE .COMPLEX Qty: 9 RF: 0 Continued aspirin [Adult Aspirin Regimen] 81 mg tablet,delayed release (DR/EC) 81 mg PO DAILY RF: 0 fluticasone propionate [Flonase Allergy Relief] 50 mcg/actuation spray,suspension 1 spray INTRANASAL DAILY Qty: 18.2 RF: 5 cyanocobalamin (vitamin B-12) 1,000 mcg/mL solution 1,000 mcg IM MONTHLY RF: 0 ipratropium bromide 0.02 % solution 2.5 ml INH Q4H PRN (Reason: shortness of breath or wheezing) Qty: 150 RF: 5 mometasone-formoterol 200-5 mcg/actuation HFA aerosol inhaler 1 puffs inhalation BID Qty: 13 RF: 5 albuterol sulfate 90 mcg/actuation HFA aerosol inhaler 2 puffs inhalation Q4H PRN (Reason: shortness of breath) Qty: 1 RF: 0 ondansetron HCl 4 mg tablet 4 mg PO Q8H PRN (Reason: nausea and vomiting) RF: 0 Dexilant 60 mg capsule,biphase delayed releas 60 mg PO DAILY RF: 0 budesonide [Pulmicort] 0.5 mg/2 mL suspension for nebulization 0.5 mg inhalation DAILY PRN (Reason: Shortness Of Breath Or Wheezing) RF: 0 clonazepam [Klonopin] 0.5 mg Tablet 0.5 mg PO TID PRN (Reason: Anxiety) RF: 0 propranolol 10 mg Tablet 10 mg PO DAILY RF: 0 estradiol [Estrace] 0.01 % (0.1 mg/gram) Cream 2 g VAGINAL WK RF: 0 escitalopram oxalate [Lexapro] 20 mg Tablet 20 mg PO DAILY RF: 0 levalbuterol HCl [Xopenex] 1.25 mg/3 mL solution for nebulization 1.25 mg INH Q4H PRN (Reason: Shortness Of Breath) RF: 0 pseudoephedrine HCl 60 mg Tablet 60 mg PO BID RF: 0 calcium carbonate 200 mg calcium (500 mg) Tablet,Chewable 200 mg PO TID PRN (Reason: Heartburn) RF: 0 benzonatate [Tessalon Perles] 100 mg Capsule 100 mg PO HS PRN (Reason: cough) Qty: 14 RF: 0 Discontinued ibuprofen 600 mg Tablet 600 mg PO QID PRN (Reason: Pain) RF: 0 nicotine [Nicoderm CQ] 21 mg/24 hr Patch 24 Hour 21 mg transdermal QAM Qty: 7 RF: 0 prednisone 10 mg tablet 10 mg PO DAILY Qty: 30 RF: 0 azithromycin 250 mg tablet 250 mg PO DAILY 6 Days Qty: 4 RF: 0 Discharge Orders: Discharge Order (Routine); Ordered 01/21/21 Ordered By: Filipe Monterroso/Other Patient Handouts: Chest and Lung Problems, Discharge Instructions: COPD Admission Data Admit Date/Time: 01/18/21 16:37 Attending Provider: Filipe Benz Admit Provider: Roly Caro Primary Care Provider: Gabriela Pérez Other Providers: Mariposa Pérez Muqueet Other Interventions: Discharge Summary Assessment (RN) Last Done: 01/21/21 12:54 Coding Level of Care Code D/C DAY MANAGEMENT >30 MINS Diagnoses Acute bronchitis J20.9 Bronchitis organism: unspecified organism Acute exacerbation of chronic obstructive pulmonary disease (COPD) J44.1 GERD (gastroesophageal reflux disease) K21.9 Tobacco use disorder F17.200 Asthma J45.909 Depression F32.9
== END 2021-01-21 14:06 | disposition home or self-care (01) | DRG 192 ==
LOC: ED 13:06 → 3W 16:37 → SUATTDRO 16:37 → INTOOBSV 16:37 → 3W 17:23